=== PATIENT | female | born 1960 | race American Indian/Alaskan Native ===

== ENCOUNTER 2019-05-12 12:18 | Emergency (ER) | payer MEDICAID ==
[2019-05-12 12:37] VITALS: BP 107/71
--- NOTE | 2019-05-12 12:37 | Event Note ---
ED Screening Note ED Screening Note: co lumbar back pain was brushing teeth and coughed no pmh no rx This initial assessment/diagnostic orders/clinical plan/treatment(s) is/are subject to change based on patients health status, clinical progression and re- assessment by fellow clinical providers in the ED. Further treatment and workup at subsequent clinical providers discretion. Patient/guardian urged not to elope from the ED as their condition may be serious if not clinically assessed and managed. Initial orders include: xray ua
[2019-05-12 13:07] LABS: Bilirubin,Urine NEG (Negative); Blood,Urine SM (Negative); Color,Urine Yellow (Yellow); Mucus,Urine 3+ /HPF; Protein,Urine <15 mg/dL mg/dL (Negative); Urobilinogen,Urine < 2.0 mg/dL (<2.0)
--- NOTE | 2019-05-12 13:16 | XRay Report ---
LUMBOSACRAL SPINE, 3 VIEWS INDICATION: Lumbar pain after coughing today. COMPARISON: None. IMPRESSION: Normal alignment. The disc spaces are normal height. Mild to moderate diffuse facet art hropathy is evident. No acute osseous or soft tissue abnormality. Signer Name: Mario Beal Jr, MD Signed: 05/12/2019 1:11 PM Workstation Name: [id number]
[2019-05-12] MEDS ORDERED: DELTASONE PO ONE (14:04)
[2019-05-12] MEDS ORDERED: FLEXERIL PO ONE (14:04)
--- NOTE | 2019-05-12 15:24 | Emergency Department Report ---
ED Back Pain/Injury HPI - General Chief Complaint: Back Pain/Injury Stated Complaint: BACK PAIN Time Seen by Provider: 05/12/19 12:35 Source: patient Limitations: No Limitations - History of Present Illness Initial Comments: Patient is a 59-year-old female with no prior medical conditions her presents ED complaining of low back muscle pain that started this morning. Patient states she was brushing her teeth and was bent over her sink in her home this morning when she strained and accidentally hurt her lower back muscle. Palpation denies any fall trauma or injuries. She denies dysuria, fever, nausea vomiting or abdominal pain. MD Complaint: back pain - Related Data Previous Rx's Medication Instructions Recorded Last Taken Type Cyclobenzaprine [Flexeril] 10 mg PO QHS PRN #15 tablet 05/12/19 Unknown Rx Allergies Allergy/AdvReac Type Severity Reaction Status Date / Time No Known Allergies Allergy Verified 05/12/19 12:20 ED Review of Systems ROS: Stated complaint: BACK PAIN Other details as noted in HPI Comment: All other systems reviewed and negative ED Past Medical Hx - Past Medical History Previous Medical History?: No Hx Hypertension: No Hx HIV: No - Surgical History Past Surgical History?: No - Social History Smoking Status: Never Smoker Substance Use Type: None - Medications Home Medications: Home Medications Medication Instructions Recorded Confirmed Last Taken Type Cyclobenzaprine [Flexeril] 10 mg PO QHS PRN #15 tablet 05/12/19 Unknown Rx ED Physical Exam - General Limitations: No Limitations General appearance: alert, in no apparent distress - Head Head exam: Present: atraumatic, normocephalic - Eye Eye exam: Present: normal appearance - ENT ENT exam: Present: mucous membranes moist - Neck Neck exam: Present: normal inspection - Respiratory Respiratory exam: Present: normal lung sounds bilaterally. Absent: respiratory distress - Cardiovascular Cardiovascular Exam: Present: regular rate, normal rhythm. Absent: systolic murmur, diastolic murmur, rubs, gallop - GI/Abdominal GI/Abdominal exam: Present: soft, normal bowel sounds - Extremities Exam Extremities exam: Present: normal inspection - Back Exam Back exam: Present: normal inspection, full ROM. Absent: tenderness, CVA tenderness (R), CVA tenderness (L) - Neurological Exam Neurological exam: Present: alert, oriented X3 - Psychiatric Psychiatric exam: Present: normal affect, normal mood - Skin Skin exam: Present: warm, dry, intact, normal color. Absent: rash ED Course Vital Signs 05/12/19 12:36 Temperature 97.9 F Pulse Rate 81 Respiratory 18 Rate Blood Pressure 107/71 O2 Sat by Pulse 99 Oximetry ED Medical Decision Making - Medical Decision Making 37-year-old female presents to ED myalgia of the lower back muscle strain ED course: Vital signs are normal patient is in no acute distress Discussed with patient follow-up with primary care physician. Discussed the patient and take medications as prescribed. Patient has no neurological deficit. Patient is alert and oriented 3 and understands all instructions given. Discussed drowsiness effect of Flexeril makes her drowsy and not to operate machinery while taking flexeril Critical care attestation.: If time is entered above; I have spent that time in minutes in the direct care of this critically ill patient, excluding procedure time. ED Disposition Clinical Impression: Strain of muscle, fascia and tendon of lower back, initial encounter Disposition: - TO HOME OR SELFCARE Is pt being admited?: No Does the pt Need Aspirin: No Condition: Stable Instructions: Muscle Strain (ED) Additional Instructions: Make sure to follow up with the primary care physician as discussed. Take all your medications as you've been prescribed. If you have any worsening symptoms or develop new symptoms please return to ED immediately. Prescriptions: Cyclobenzaprine [Flexeril] 10 mg PO QHS PRN #15 tablet PRN Reason: Muscle Spasm Referrals: DORINDA COVINGTON DPM [Primary Care Provider] - 3-5 Days Forms: Work/School Release Form(ED) Time of Disposition: 15:24
== END 2019-05-12 15:30 | disposition home or self-care (01) ==
LOC: ED 12:18
DX: S39.012A Strain of muscle, fascia and tendon of lower back, initial encounter (principal); X58.XXXA Exposure to other specified factors, initial encounter; Y93.89 Activity, other specified; Y92.89 Other specified places as the place of occurrence of the external cause; Y99.8 Other external cause status
CPT/HCPCS: 72100; 81001; 99284; J7512

== ENCOUNTER 2019-12-18 13:50 | Outpatient (CLI) | payer MEDICAID ==
[2019-12-18 14:22] LABS: Blood Urea Nitrogen 12 mg/dL (7-17)
--- NOTE | 2019-12-18 15:35 | Magnetic Resonance Report ---
MR ABDOMEN WITH AND WITHOUT CONTRAST HISTORY: Renal cell carcinoma, mass of kidney TECHNIQUE: Multisequence, multiplanar MRI before and after IV contrast. 20 cc of MultiHance was admin istered intravenously. COMPARISON: None. FINDINGS: Both kidneys are borderline atrophic measuring approximately 9 cm in length. A 1.2 cm slightly comple x lesion is identified at the inferior pole of the left kidney. This does not appear to represent a s imple cyst. This lesion is decreased signal on the T2 images but appears cystic on the T1 and postcon trast images. There is minimal leakage of contrast into the cyst on delayed dynamic imaging. No suspi cious hypervascular mass is appreciated. No obstructive uropathy. The renal veins are patent. No retr operitoneal adenopathy. Normal liver, biliary system, pancreas, spleen and adrenal glands. The aorta is normal caliber. The v isualized bowel loops are within normal limits. No evidence for ascites, adenopathy, inflammatory changes or bony lesion. IMPRESSION: 1.2 cm lesion at the inferior pole of the left kidney as described. I suspect this repres ents a complex cyst and not a renal mass. Consider follow-up in 3-6 months. Signer Name: Mario Beal Jr, MD Signed: 12/18/2019 3:30 PM Workstation Name: [id number]
== END 2019-12-18 13:51 | disposition home or self-care (01) ==
LOC: MRI 13:50
PROVIDERS: ATTEND Radiology Diagnostic Radiology
DX: C64.9 Malignant neoplasm of unspecified kidney, except renal pelvis (principal); N28.1 Cyst of kidney, acquired
CPT/HCPCS: 36415; 74183; 82565; 84520; A9577

== ENCOUNTER 2019-12-24 11:19 | Emergency (ER) | payer MEDICAID ==
[2019-12-24 11:25] VITALS: BP 139/94
[2019-12-24] MEDS ORDERED: methylPREDNISolone ACETATE 80 MG/1 ML INJ IM ONE (11:45)
--- NOTE | 2019-12-24 11:47 | Emergency Department Report ---
ED Lower Extremity HPI - General Chief Complaint: Extremity Injury, Lower Stated Complaint: RIGHT LEG PAIN Time Seen by Provider: 12/24/19 11:41 Source: patient Mode of arrival: Ambulatory Limitations: No Limitations - History of Present Illness Initial Comments: Patient is a pleasant 59-year-old female comes to the ER with left knee pain. She has osteoarthritis in her knee and is received numerous injections including what sounds like stem cell injections in the past. Today she woke up and the knee is extremely painful. She does have a PCP and has an appointment but he could not see her today. Bev is not relieving the pain. She denies any new trauma or fall. Patient states that the aches to the knee began about a week ago and she cannot identify any 1 activity or movement that resulted in the pain starting suddenly again. MD Complaint: knee injury -: Sudden Place: home Worsens With: weight bearing - Related Data Previous Rx's Medication Instructions Recorded Last Taken Type methylPREDNISolone [Medrol 4MG 4 mg PO DAILY #21 tab.ds.pk 12/24/19 Unknown Rx DOSEPAK (21 tabs)] Allergies Allergy/AdvReac Type Severity Reaction Status Date / Time No Known Allergies Allergy Verified 12/24/19 11:20 ED Review of Systems ROS: Stated complaint: RIGHT LEG PAIN Other details as noted in HPI Comment: All other systems reviewed and negative ED Past Medical Hx - Past Medical History Hx Hypertension: No Hx Arthritis: Yes Hx HIV: No - Surgical History Past Surgical History?: No - Family History Family history: no significant - Social History Smoking Status: Never Smoker Substance Use Type: None - Medications Home Medications: Home Medications Medication Instructions Recorded Confirmed Last Taken Type methylPREDNISolone [Medrol 4MG 4 mg PO DAILY #21 tab.ds.pk 12/24/19 Unknown Rx DOSEPAK (21 tabs)] ED Physical Exam - General Limitations: No Limitations General appearance: alert, in no apparent distress - Head Head exam: Present: atraumatic, normocephalic - Eye Eye exam: Present: normal appearance - ENT ENT exam: Present: mucous membranes moist - Neck Neck exam: Present: normal inspection - Respiratory Respiratory exam: Present: normal lung sounds bilaterally. Absent: respiratory distress - Cardiovascular Cardiovascular Exam: Present: regular rate, normal rhythm. Absent: systolic murmur, diastolic murmur, rubs, gallop - GI/Abdominal GI/Abdominal exam: Present: soft, normal bowel sounds - Extremities Exam Extremities exam: Present: normal inspection - Back Exam Back exam: Present: normal inspection - Neurological Exam Neurological exam: Present: alert, oriented X3 - Psychiatric Psychiatric exam: Present: normal affect, normal mood - Skin Skin exam: Present: warm, dry, intact, normal color. Absent: rash ED Course Vital Signs 12/24/19 11:24 Temperature 97.9 F Pulse Rate 89 Respiratory 20 Rate Blood Pressure 139/94 O2 Sat by Pulse 98 Oximetry ED Lower Extremity MDM - Medical Decision Making Vital Signs 12/24/19 11:24 Temperature 97.9 F Pulse Rate 89 Respiratory 20 Rate Blood Pressure 139/94 O2 Sat by Pulse 98 Oximetry Patient was medicated with Depo-Medrol IM and is being DC'd home for follow-up with Dr. Beth. Critical care attestation.: If time is entered above; I have spent that time in minutes in the direct care of this critically ill patient, excluding procedure time. ED Disposition Clinical Impression: Knee pain Disposition: DC-01 TO HOME OR SELFCARE Is pt being admited?: No Does the pt Need Aspirin: No Condition: Stable Instructions: Osteoarthritis (ED) Additional Instructions: med as ordered follow up with DR Kirit mcclure MD Prescriptions: methylPREDNISolone [Medrol 4MG DOSEPAK (21 tabs)] 4 mg PO DAILY #21 tab.ds.pk Referrals: PRIMARY CARE, [Primary Care Provider] - 3-5 Days FELTON BETH MD [Staff Physician] - 3-5 Days Time of Disposition: 11:46
== END 2019-12-24 12:03 | disposition home or self-care (01) ==
LOC: ED 11:19
DX: M25.562 Pain in left knee (principal)
CPT/HCPCS: 96372; 99282; J1040

== ENCOUNTER 2020-06-29 10:33 | Outpatient (CLI) | payer MEDICAID ==
--- NOTE | 2020-06-29 14:13 | Magnetic Resonance Report ---
MR abdomen wo/w con INDICATION / CLINICAL INFORMATION: Renal malignancy.. TECHNIQUE: Multiplanar, multisequence MR images were obtained. Images were obtained before and after the intrave nous demonstration of 18 cc MultiHance. COMPARISON: MRI 12/18/2019 FINDINGS: Liver, gallbladder, adrenals, spleen, pancreas are unremarkable. Common duct is unremarkable. There i s no free fluid or adenopathy. Upper GI tract is within normal limits. Previously seen lesion at the lower pole left kidney has increased in size measuring approximately 1. 6 cm on series 4 image 23/52. This measures 1.8 cm on coronal series 5 image 16. There appears to be mild mural/peripheral enhancement of this on the postcontrast imaging. Right kidney is unremarkable. IMPRESSION: 1. Interval increase in size of lower pole left renal cortical lesion. This measures 1.8 cm in maximu m diameter on today's exam (previously 1.5 cm by my measurement). There is mild peripheral/pleural en hancement after contrast. This is concerning for slow growing/low-grade neoplasm. Signer Name: Gavin Caban MD Signed: 06/29/2020 2:08 PM Workstation Name: [id number]
== END 2020-06-29 10:34 | disposition home or self-care (01) ==
LOC: MRI 10:33
PROVIDERS: ATTEND Radiology Diagnostic Radiology
DX: C64.9 Malignant neoplasm of unspecified kidney, except renal pelvis (principal); N28.89 Other specified disorders of kidney and ureter
CPT/HCPCS: 74183; A9577

== ENCOUNTER 2020-11-01 15:28 | Emergency (ER) | payer MEDICAID ==
--- NOTE | 2020-11-01 17:53 | Emergency Department Report ---
Stated Complaint: FALL Time Seen by Provider: 11/01/20 17:48 - HPI History of Present Illness: 60-year-old -[place] female patient presents with complaints of bilateral knee pain, right shoulder pain, bilateral lower back pain after a fall injury occurring earlier today. She states the fall was ground-level and denies any head trauma or loss of consciousness. Patient rates her overall pain as a 7/10 in severity. She denies any numbness/tingling/weakness in her limbs, difficulty with ambulation, saddle paresthesia, hematuria/hematochezia, or loss of bladder/bowel control. Patient states she has not tried any medication for her symptoms. MSE screening note: Focused history and physical exam performed. Due to findings the following was ordered: ED Medical Decision Making - Medical Decision Making No bony abnormalities or decreased range of motion noted of her joints on exam. She denies red flag symptoms. Recommend patient try ibuprofen [id number] and ice the areas that hurt for now. Recommend follow-up with primary care provider in 3 days. Discussed signs and symptoms that should prompt immediate return to the emergency department in detail with patient who verbalized underst anding. She is well-appearing and stable for discharge home ED Disposition for MSE Clinical Impression: Fall, Muscle strain Disposition: - MED SCREENING EXAM-LEFT Is pt being admited?: No Condition: Stable Instructions: Shoulder Sprain, Lumbosacral Strain Referrals: [facility] [Provider Group] - 3-5 Days ED Physical Exam - General Limitations: No Limitations General appearance: alert, in no apparent distress - Head Head exam: Present: atraumatic, normocephalic - Eye Eye exam: Absent: scleral icterus - Neck Neck exam: Present: normal inspection, full ROM. Absent: tenderness - Respiratory Respiratory exam: Present: normal lung sounds bilaterally. Absent: respiratory distress - Cardiovascular Cardiovascular Exam: Present: regular rate, normal rhythm - GI/Abdominal GI/Abdominal exam: Present: soft. Absent: tenderness - Extremities Exam Extremities exam: Present: full ROM, other (Mild tenderness to palpation of the right trapezius muscle noted; normal sensation and radial pulse noted; no tenderness noted to knees bilateral) - Back Exam Back exam: Present: full ROM. Absent: paraspinal tenderness, vertebral tenderness - Neurological Exam Neurological exam: Present: alert, oriented X3, normal gait. Absent: motor sensory deficit - Expanded Neurological Exam Expanded Sensory exam: Lower Extremity Light Touch: Normal Motor strength exam: RUE: 5, LUE: 5, RLE: 5, LLE: 5 - Skin Skin exam: Present: warm, dry, intact, normal color. Absent: rash ED Review of Systems ROS: Stated complaint: FALL Other details as noted in HPI Constitutional: denies: chills, fever, malaise Respiratory: denies: shortness of breath Cardiovascular: denies: chest pain Gastrointestinal: denies: abdominal pain Musculoskeletal: denies: joint swelling Skin: denies: change in color Neurological: denies: headache, numbness, paresthesias
[2020-11-01 19:43] VITALS: BP 141/89
== END 2020-11-01 18:03 | disposition left against medical advice (07) ==
LOC: ED 15:28
DX: M25.561 Pain in right knee (principal); M25.562 Pain in left knee; M25.511 Pain in right shoulder; Z53.21 Procedure and treatment not carried out due to patient leaving prior to being seen by health care provider

== ENCOUNTER 2021-01-13 09:14 | Outpatient (CLI) | payer MEDICAID ==
--- NOTE | 2021-01-13 10:50 | Magnetic Resonance Report ---
MRI ABDOMEN WITHOUT AND WITH CONTRAST INDICATION / CLINICAL INFORMATION: Malignant neoplasm of unspecified kidney, except renal pelvis. TECHNIQUE: Multiplanar, multisequence series were obtained through the abdomen. 18 cc of IV gadolinium. COMPARISON: 06/29/2020. 12/18/2019. FINDINGS: LIVER: No significant abnormality. GALLBLADDER: No significant abnormality. BILE DUCTS: No significant abnormality. PANCREAS: No significant abnormality. SPLEEN: No significant abnormality. ADRENALS: No significant abnormality. RIGHT KIDNEY AND URETER: No significant abnormality. Tiny 5 mm cyst in the mid right kidney is noted and unchanged. LEFT KIDNEY AND URETER: The previously described 1.8 cm lesion at the inferior pole of the left kidne y appears unchanged in size and MR signal characteristics. Subtle peripheral enhancement is again sug gested on dynamic contrast imaging. This does not represent a simple cyst and remains concerning for a low-grade neoplasm. No change is appreciated since 06/29/2020 exam. STOMACH AND VISUALIZED BOWEL: No significant abnormality. PERITONEUM: No free fluid. No free air. No fluid collection. LYMPH NODES: No significant adenopathy. AORTA and ARTERIES: No significant abnormality. IVC and VEINS: No significant abnormality. ADDITIONAL FINDINGS: None. SKELETAL SYSTEM: No significant abnormality. IMPRESSION: No change since 06/29/2020 exam. See above. Signer Name: Mario Beal Jr, MD Signed: 01/13/2021 10:46 AM Workstation Name: [id number]
--- NOTE | 2021-01-13 13:19 | Ultrasound Report ---
ULTRASOUND RENAL INDICATION / CLINICAL INFORMATION: MALIGNANT NEOPLASM. COMPARISON: Multiple previous MR abdomen is with the most recent being 01/13/2021. FINDINGS: RIGHT KIDNEY: Length = 10.2 cm. [normal > 9 cm] - Parenchymal Thickness = 1.6 cm. [normal > 1.5 cm] - Echogenicity: Normal. - Hydronephrosis: None. - Cyst or mass: No significant abnormality. - Stones: None seen. LEFT KIDNEY: Length = 9.3 cm. [normal > 9 cm] - Parenchymal Thickness = 1.2 cm. [normal > 1.5 cm] - Echogenicity: Normal. - Hydronephrosis: None. - Cyst or mass: Ultrasound also demonstrates an approximate 1.9 cm solid mass at the inferior pole of the left kidney which corresponds to the abnormality seen on MRI. No evidence for cystic change or c alcifications. There is trace internal perfusion on Doppler interrogation. - Stones: None seen. URINARY BLADDER: No significant abnormality. FREE FLUID: None. ADDITIONAL FINDINGS: None. IMPRESSION: 1.9 cm solid mass at the inferior pole of the left kidney as described. Signer Name: Mario Beal Jr, MD Signed: 01/13/2021 1:15 PM Workstation Name: [id number]
== END 2021-01-13 09:15 | disposition home or self-care (01) ==
LOC: MRI 09:14
PROVIDERS: ATTEND Radiology Diagnostic Radiology
DX: C64.9 Malignant neoplasm of unspecified kidney, except renal pelvis (principal); N28.1 Cyst of kidney, acquired; N28.89 Other specified disorders of kidney and ureter
CPT/HCPCS: 74183; 76770; A9575

== ENCOUNTER 2021-03-20 06:27 | Inpatient (IN) | payer MEDICAID ==
[2021-03-20 07:36] LABS: Basophils % (Auto) 0.4 % (0.0-1.8); Eosinophils # (Auto) 0.1 K/mm3 (0.0-0.4); Eosinophils % (Auto) 1.4 % (0.0-4.3); Hematocrit 35.9 % (30.3-42.9); Hemoglobin 11.7 gm/dl (10.1-14.3); Lymphocytes # (Auto) 3.2 K/mm3 (1.2-5.4); Mean Corpuscular HGB Conc 33 % (30-34); Mean Corpuscular Volume 81 fl (79-97); Monocytes # (Auto) 0.7 K/mm3 (0.0-0.8); Monocytes % (Auto) 10.9 % (0.0-7.3); Platelet Count 314 K/mm3 (140-440); Red Blood Count 4.41 M/mm3 (3.65-5.03); Red Cell Distribution Width 15.9 % (13.2-15.2)
[2021-03-20 07:48] LABS: BUN/Creatinine Ratio 19; Blood Urea Nitrogen 17 mg/dL (7-17); Calcium 8.6 mg/dL (8.4-10.2); Hemolysis Index 24
[2021-03-20 07:52] LABS: INR 0.95 (0.87-1.13); Partial Thromboplastin Time 28.6 Sec. (24.2-36.6)
[2021-03-20] MEDS ORDERED: propofoL 200 MG/20 ML VIAL IV ONE (08:33)
[2021-03-20] MEDS ORDERED: ROCURONIUM 50 MG/5 ML INJ IV ONE ×2 (08:33→12:52)
[2021-03-20] MEDS ORDERED: MIDAZOLAM 2 MG/2 ML INJ ONE (08:33)
[2021-03-20] MEDS ORDERED: LIDOCAINE MPF (2%) 20 MG/1 ML VIAL 5 ML ONE (08:33)
[2021-03-20] MEDS ORDERED: HYDROmorphone 1 MG/1 ML INJ ONE (08:33)
[2021-03-20] MEDS ORDERED: ONDANSETRON 4 MG/2 ML INJ IV PRN (08:46)
[2021-03-20] MEDS ORDERED: oxyCODONE /ACETAMINOPHEN 5-325MG TAB PO PRN (08:46)
--- NOTE | 2021-03-20 08:51 | Anesthesia Consultation ---
Anesthesia Consult and Med Hx Date of service: 03/20/21 - Airway Anesthetic Teeth Evaluation: Good (some missing teeth) ROM Head & Neck: Adequate Mental/Hyoid Distance: Adequate Mallampati Class: Class III Intubation Access Assessment: Possibly Difficult - Pre-Operative Health Status ASA Pre-Surgery Classification: ASA2 Proposed Anesthetic Plan: General - Pulmonary Hx Smoking: No Hx Sleep Apnea: No (BJ PRE SCREEN LOW RISK) - Cardiovascular System Hx Hypertension: No - Central Nervous System Hx Psychiatric Problems: Yes (anxiety) - Endocrine Hx Renal Disease: Yes (left kidney CA) - Other Systems Hx Cancer: Yes (left kidney CA)
--- NOTE | 2021-03-20 08:51 | Anesthesia Day of Surgery ---
Anesthesia Day of Surgery - Day of Surgery Patient Examined: Yes Patient H&P Reviewed: Yes Patient is NPO: Yes
[2021-03-20] MEDS ORDERED: ceFAZolin/Water 2 GM/20 ML 2 GM/20 ML SYRINGE IV ONE (08:56)
[2021-03-20] MEDS ORDERED: NEOSTIGMINE 10MG/10 ML INJ MDV ONE (09:07)
[2021-03-20] MEDS ORDERED: GLYCOPYRROLATE 0.4 MG/2 ML INJ ONE (09:07)
[2021-03-20] MEDS ORDERED: ONDANSETRON 4 MG/2 ML INJ ONE (09:07)
--- NOTE | 2021-03-20 09:20 | Short Stay Summary ---
Short Stay Documentation Date of service: 03/20/21 Narrative H&P: 61-year-old female with left-sided renal cell carcinoma who presents for left renal cell carcinoma cryoablation. - History Principal diagnosis: Left renal cell carcinoma H&P: obtained from office - Allergies and Medications Current Medications: Allergies No Known Allergies Allergy (Verified 12/24/19 11:20) Home Medications Medication Instructions Recorded Confirmed Last Taken Type Buspirone HCl [busPIRone] 15 mg PO TID 03/20/21 03/20/21 03/19/21 History 15 mg Lifitegrast [Xiidra] 1 drop INTRAOCULA BID 03/20/21 03/20/21 03/19/21 History 1 drop Quetiapine Fumarate [Quetiapine 400 mg PO HS 03/20/21 03/20/21 03/19/21 History Fumarate ER] 400 mg Active Medications Hydromorphone HCl (Hydromorphone 1 Mg/1 Ml Inj) 0.5 mg IV Q10MIN PRN PRN Reason: Pain , Severe (7-10) Stop: 03/21/21 09:00 Sodium Chloride (Nacl 0.9% 1000 Ml) 1,000 mls @ 42 mls/hr IV DIRECT CHERRY Ondansetron HCl (Ondansetron 4 Mg/2 Ml Inj) 4 mg IV ONCE PRN PRN Reason: Nausea And Vomiting Oxycodone/Acetaminophen (Oxycodone /Acetaminophen 5-325mg Tab) 1 tab PO ONCE PRN PRN Reason: Pain, Moderate (4-6) - Physical exam General appearance: no acute distress HEENT: Mucous membr. moist/pink Lungs: Normal air movement Gastrointestinal: normal - Brief post op/procedure progress note Date of procedure: 03/28/21 Pre-op diagnosis: Left RCC Post-op diagnosis: same Procedure: EXAM: 1. Percutaneous CT-guided cryoablation of a right-sided renal cell carcinoma using 2 cryoablation probes DATE: 03/20/21 CUFF RUNNER: TINO KEYS MD INDICATION: Left-sided renal cell carcinoma measuring approximately 1.8 cm in diameter on CT scan who presents for percutaneous therapy of the left-sided renal cell carcinoma. ANESTHESIA: GETA MEDICATIONS: Please see nursing report for full details. DEVICES: 1. IcePearl 2.1 CX 90 needle 2. IceRod 1.5 CX 90 needle CONTRAST: None. PROCEDURE: The risks, benefits, and alternatives were discussed with the patient; written informed consent was obtained. The patient was brought to the CT suite in stable condition. She was then intubated by anesthesiology, and positioned in a prone position on the CT gantry table. The grid was applied to the left flank and the renal cell carcinoma was identified using CT guidance. Localization inside barrel lathe operator CT was performed. Position and breathing was adjusted. This is performed for localization purposes, and not for diagnostic purposes. The area was prepped and draped in a sterile fashion. The skin was anesthetized with lidocaine. Short 25-gauge finder needles were used for localization. Then a 25-gauge Chiba needles were used to identify the correct positioning to access the left-sided renal cell carcinoma. Using tandem trocar technique, an IceRod ablation probe was advanced under direct CT guidance into the left-sided renal cell carcinoma. An additional cryoablation probe, the IcePearl ablation probe, was advanced under direct CT guidance into the left-sided renal cell carcinoma. After appropriately framing the lesion with the cryoablation probes, CT was perf ormed confirming appropriate position. CT was performed demonstrating no evidence of perinephric hemorrhage. 18-gauge needle was placed into the left perinephric space. 1 L of NS saline was infused into the perinephric space. This displaced the colon and small bowel from the left renal cell carcinoma. 10 minute active freezing was performed with both probes, and CT imaging was obtained during the active freeze demonstrating appropriate size of the ice ball. 5 minute active thaw was allowed to occur. 10 minute active freezing was again performed with both probes and CT imaging was obtained during the active freeze demonstrating appropriate size of the ice ball. 5 minute active thaw was allowed to occur and then cauterization was performed through the ablation probes for 30 seconds to cauterize the tract. Afterwards, all the probes were removed. CT was obtained demonstrating no evidence of perinephric hemorrhage. The patient tolerated the procedure well. No immediate postprocedural complication. FINDINGS: Successful cryoablation of the left-sided renal cell carcinoma using 2 cryoablation probes as described above. IMPRESSION: Successful cryoablation of the left-sided renal cell carcinoma using 2 cryoablation probes as described above. Anesthesia: MAC Surgeon: TINO KEYS Estimated blood loss: minimal Condition: stable - Hospital course Hospital course: The patient was admitted after cryoablation and had mild discomfort of her left flank, which is expected. This improved over the next day and there was minimal if any discomfort afterwards. Patient had underlying chronic nausea and vomiting due to underlying hiatal hernia, H. pylori infection, and has been worked up by outpatient gastroenterology. She was unable to tolerate p.o. intake for a day, and therefore GI was consulted who recommended she obtain a gallbladder ultrasound. KUB and gallbladder ultrasound were obtained both of which were negative. Patient was discharged with pain medication, antibiotics which are typical after cryoablation, and antiemetic therapy. She will follow up in 2 weeks. - Disposition Condition at discharge: Good Disposition: DC-[id number] TO HOME OR SELFCARE - Discharge Diagnoses (1) Renal cell carcinoma Status: Acute (2) Nausea & vomiting Status: Acute (3) Status post surgery Status: Acute (4) Bipolar disorder Status: Chronic Qualifiers: Active/Remission status: in full remission (5) Hypertension Status: Chronic Qualifiers: Hypertension type: essential hypertension Qualified Code(s): I10 - Essential (primary) hypertension Short Stay Discharge Plan Activity: advance as tolerated (do not lift more than 10 lbs for 1 week) Weight Bearing Status: Weight Bear as Tolerated Diet: other (per GI) Wound: keep clean and dry Follow up with: PRIMARY CARE, [Primary Care Provider] - 7 Days Forms: OPU Post Liver Biopsy DC Instr Prescriptions: LORazepam [Ativan] 0.5 mg PO BID PRN #10 tab PRN Reason: Nausea and vomiting Ciprofloxacin HCl [Ciprofloxacin TAB] 250 mg PO BID #14 tablet HYDROcodone/APAP 5-325 [[place] 5/325] 1 each PO Q6H #30 tablet Pantoprazole [Protonix TAB] 40 mg PO BID #60 tablet Ondansetron HCl [Zofran] 4 mg PO Q6HR PRN #30 tablet PRN Reason: Nausea And Vomiting Ondansetron [Zofran Odt] 4 mg PO Q4HR PRN #30 tab.rapdis PRN Reason: Nausea
[2021-03-20] MEDS ORDERED: LIDOCAINE 1%/EPINEPHRINE 1:100,000 VIAL (20 ML) INFILTRATI ONE (10:18)
[2021-03-20] MEDS ORDERED: MEPERIDINE 25 MG/1 ML INJ IV PRN (12:43)
[2021-03-20] MEDS ORDERED: MEPERIDINE 25 MG/1 ML INJ ONE (12:45)
[2021-03-20] MEDS ORDERED: HYDROcodone/ACETAMINOPHEN 5-325 MG TAB PO PRN (12:46)
[2021-03-20] MEDS ORDERED: ACETAMINOPHEN 325 MG TAB PO PRN (12:46)
[2021-03-20] MEDS ORDERED: LIFITEGRAST INTRAOCULA SCH (13:00)
[2021-03-20] MEDS: HYDROmorphone 1 MG/1 ML INJ IV PRN ×3 (13:00→13:40)
[2021-03-20] MEDS ORDERED: hydrALAZINE 20 MG/1 ML INJ IV ONE (13:07)
[2021-03-20] MEDS ORDERED: hydrALAZINE 20 MG/1 ML INJ ONE (13:09)
--- NOTE | 2021-03-20 13:15 | Operative Report ---
Operative Report Operative Report: EXAM: 1. Percutaneous CT-guided cryoablation of a right-sided renal cell carcinoma using 2 cryoablation probes DATE: 03/20/21 FEATHERER: TINO KEYS MD INDICATION: Left-sided renal cell carcinoma measuring approximately 1.8 cm in diameter on CT scan who presents for percutaneous therapy of the left-sided re nal cell carcinoma. ANESTHESIA: GETA MEDICATIONS: Please see nursing report for full details. DEVICES: 1. IcePearl 2.1 CX 90 needle 2. IceRod 1.5 CX 90 needle CONTRAST: None. PROCEDURE: The risks, benefits, and alternatives were discussed with the patient; written informed consent was obtained. The patient was brought to the CT suite in stable condition. She was then intubated by anesthesiology, and positioned in a prone position on the CT gantry table. The grid was applied to the left flank and the renal cell carcinoma was identified using CT guidance. Localization engineering faculty CT was performed. Position and breathing was adjusted. This is performed for localization purposes, and not for diagnostic purposes. The area was prepped and draped in a sterile fashion. The skin was anesthetized with lidocaine. Short 25-gauge finder needles were used for localization. Then a 25-gauge Chiba needles were used to identify the correct positioning to access the left-sided renal cell carcinoma. Using tandem trocar technique, an IceRod ablation probe was advanced under direct CT guidance into the left-sided renal cell carcinoma. An additional cryoablation probe, the IcePearl ablation probe, was advanced under direct CT guidance into the left-sided renal cell carcinoma. After appropriately framing the lesion with the cryoablation probes, CT was performed confirming appropriate position. CT was performed demonstrating no evidence of perinephric hemorrhage. 18-gauge needle was placed into the left perinephric space. 1 L of NS saline was infused into the perinephric space. This displaced the colon and small bowel from the left renal cell carcinoma. 10 minute active freezing was performed with both probes, and CT imaging was obtained during the active freeze demonstrating appropriate size of the ice ball. 5 minute active thaw was allowed to occur. 10 minute active freezing was again performed with both probes and CT imaging was obtained during the active freeze demonstrating appropriate size of the ice ball. 5 minute active thaw was allowed to occur and then cauterization was performed through the ablation probes for 30 seconds to cauterize the tract. Afterwards, all the probes were removed. CT was obtained demonstrating no evidence of perinephric hemorrhage. The patient tolerated the procedure well. No immediate postprocedural complication. FINDINGS: Successful cryoablation of the left-sided renal cell carcinoma using 2 cryoablation probes as described above. IMPRESSION: Successful cryoablation of the left-sided renal cell carcinoma using 2 cryoabla tion probes as described above.
[2021-03-20] MEDS ORDERED: NON-FORMULARY EACH (Buspirone Hcl [Buspirone] 15 MG Tablet) PO SCH (14:00)
--- NOTE | 2021-03-20 14:36 | Post Anesthesia Evaluation ---
- Post Anesthesia Evaluation Patient Participated: Yes Airway Patent: Yes Stable Respiratory Function: Yes Nausea/Vomiting: No Temp > 96.8F: Yes Pain Manageable: Yes Adequeate Hydration: Yes Anesthesia Complications: No Other Comments: HTN in PACU treated with IV antihypertensives
[2021-03-20] MEDS ORDERED: ALUM-MAG HYDROXIDE-SIMETHICONE 200-200-20MG/5ML ORAL LIQD 30 ML PO PRN (17:00)
[2021-03-20] MEDS: SODIUM CHLORIDE 0.9% 1000 ML 1,000 ML IV SCH (17:01)
[2021-03-20] MEDS: LOSARTAN 50 MG TAB PO SCH (17:45)
[2021-03-20] MEDS: busPIRone 5 MG TAB PO SCH (21:00)
[2021-03-20] MEDS: PANTOPRAZOLE 40 MG TAB PO SCH (21:53)
[2021-03-20] MEDS: QUEtiapine 200 MG TAB PO SCH (21:53)
[2021-03-20] MEDS ORDERED: QUETIAPINE FUMARATE 400 MG PO SCH (22:00)
[2021-03-21 06:26] LABS: Basophils % (Auto) 0.4 % (0.0-1.8); Eosinophils # (Auto) 0.1 K/mm3 (0.0-0.4); Eosinophils % (Auto) 0.7 % (0.0-4.3); Hematocrit 33.6 % (30.3-42.9); Hemoglobin 10.8 gm/dl (10.1-14.3); Lymphocytes # (Auto) 1.8 K/mm3 (1.2-5.4); Lymphocytes % (Auto) 26.1 % (13.4-35.0); Mean Corpuscular HGB Conc 32 % (30-34); Mean Corpuscular Volume 83 fl (79-97); Monocytes # (Auto) 0.7 K/mm3 (0.0-0.8); Monocytes % (Auto) 10.2 % (0.0-7.3); Platelet Count 293 K/mm3 (140-440); Red Blood Count 4.04 M/mm3 (3.65-5.03)
--- NOTE | 2021-03-21 07:42 | Consultation ---
History of Present Illness - Reason for Consult Consult date: 03/20/21 Medical management Requesting physician: TINO KEYS - History of Present Illness Patient was admitted for postoperative care after cryoablation of left renal cell carcinoma. Postop patient doing well. No complaints. Wants to continue more Seroquel and wants a straight catheterization for bladder distention. Otherwise patient comfortable. Past History Past Medical History: other (Renal cell carcinoma left side) Past Surgical History: Other (Cryoablation of the left renal cell carcinoma) Medications and Allergies Allergies Allergy/AdvReac Type Severity Reaction Status Date / Time No Known Allergies Allergy Verified 12/24/19 11:20 Home Medications Medication Instructions Recorded Confirmed Last Taken Type Buspirone HCl [busPIRone] 15 mg PO TID 03/20/21 03/20/21 03/19/21 History 15 mg Lifitegrast [Xiidra] 1 drop INTRAOCULA BID 03/20/21 03/20/21 03/19/21 History 1 drop Quetiapine Fumarate [Quetiapine 400 mg PO HS 03/20/21 03/20/21 03/19/21 History Fumarate ER] 400 mg Active Meds: Active Medications Acetaminophen (Acetaminophen 325 Mg Tab) 650 mg PO Q4H PRN PRN Reason: Pain MILD(1-3)/Fever >100.5/RAMOS Hydrocodone Bitart/Acetaminophen (Hydrocodone/Acetaminophen 5-325 Mg Tab) 2 each PO Q6H PRN PRN Reason: Pain, Moderate (4-6) Al Hydrox/Mg Hydrox/Simethicone (Alum-Mag Hydroxide-Simethicone [id number]/5ml Oral Liqd 30 Ml) 30 ml PO Q4H PRN PRN Reason: Indigestion Last Admin: 03/20/21 17:09 Dose: 30 ml Documented by: Buspirone HCl (Buspirone 5 Mg Tab) 15 mg PO TID CHERRY Last Admin: 03/20/21 21:00 Dose: 15 mg Documented by: Hydromorphone HCl (Hydromorphone 1 Mg/1 Ml Inj) 0.5 mg IV Q10MIN PRN PRN Reason: Pain , Severe (7-10) Stop: 03/21/21 09:00 Last Admin: 03/20/21 13:40 Dose: 0.5 mg Documented by: Sodium Chloride (Nacl 0.9% 1000 Ml) 1,000 mls @ 42 mls/hr IV DIRECT [facility] Last Admin: 03/20/21 17:01 Dose: 42 mls/hr Documented by: Losartan Potassium (Losartan 50 Mg Tab) 50 mg PO QDAY [facility] Last Admin: 03/20/21 17:45 Dose: 50 mg Documented by: Miscellaneous Medication (Lifitegrast [Xiidra]) 1 drop INTRAOCULA BID [facility] Oxycodone/Acetaminophen (Oxycodone /Acetaminophen 5-325mg Tab) 1 tab PO ONCE PRN PRN Reason: Pain, Moderate (4-6) Pantoprazole Sodium (Pantoprazole 40 Mg Tab) 40 mg PO QDAC [facility] Last Admin: 03/20/21 21:53 Dose: 40 mg Documented by: Quetiapine Fumarate (Quetiapine 200 Mg Tab) 400 mg PO QHS [facility] Last Admin: 03/20/21 21:53 Dose: 400 mg Documented by: Sodium Chloride (Sodium Chloride 0.9% 10 Ml Flush Syringe) 10 ml IV BID [facility] Last Admin: 03/21/21 00:06 Dose: 10 ml Documented by: Sodium Chloride (Sodium Chloride 0.9% 10 Ml Flush Syringe) 10 ml IV PRN PRN PRN Reason: LINE FLUSH Exam - Constitutional Vitals: Temp Pulse Resp BP Pulse Ox 98.7 F 81 19 98/74 100 03/21/21 03:57 03/21/21 06:52 03/21/21 03:57 03/21/21 03:57 03/21/21 03:57 General appearance: Present: no acute distress, well-nourished - EENT Eyes: Present: PERRL ENT: hearing intact, clear oral mucosa - Neck Neck: Present: supple, normal ROM - Respiratory Respiratory effort: normal Respiratory: bilateral: CTA - Cardiovascular Heart rate: 78 Rhythm: regular Heart Sounds: Present: S1 & S2. Absent: rub, click - Extremities Extremities: pulses symmetrical, No edema Peripheral Pulses: within normal limits - Abdominal General gastrointestinal: Present: soft, non-tender, non-distended, normal bowel sounds Female genitourinary: Present: normal - Integumentary Integumentary: Present: clear, warm, dry - Musculoskeletal Musculoskeletal: gait normal, strength equal bilaterally - Psychiatric Psychiatric: appropriate mood/affect, intact judgment & insight - Neurologic Neurologic: CNII-XII intact, moves all extremities Results - Labs CBC & Chem 7: 03/21/21 04:31 03/20/21 Unknown Labs: Abnormal lab results 03/20/21 03/21/21 Range/Units Unknown 04:31 MCH 27 L (28-32) pg RDW 16.0 H (13.2-15.2) % [place] % (Auto) 10.2 H (0.0-7.3) % Glucose 114 H (65-100) mg/dL Assessment and Plan - Patient Problems (1) Status post surgery Current Visit: Yes Status: Acute Plan to address problem: Patient had cryoablation of the left renal cell carcinoma Postop patient doing well (2) Generalized anxiety disorder Current Visit: Yes Status: Chronic Plan to address problem: Continue BuSpar (3) Bipolar disorder Current Visit: Yes Status: Chronic Qualifiers: Active/Remission status: in full remission Plan to address problem: Continue Seroquel 400 mg at nighttime (4) Hypertension Current Visit: Yes Status: Chronic Qualifiers: Hypertension type: essential hypertension Qualified Code(s): I10 - Essential (primary) hypertension Plan to address problem: Continue antihypertensive and adjust medications as necessary (5) DVT prophylaxis Current Visit: Yes Status: Acute Plan to address problem: On SCDs and GI prophylaxis
[2021-03-21 07:50] LABS: Alanine Aminotransferase 28 units/L (7-56); Albumin 3.4 g/dL (3.9-5); BUN/Creatinine Ratio 11; Blood Urea Nitrogen 10 mg/dL (7-17); Calcium 8.3 mg/dL (8.4-10.2); Hemolysis Index 24
[2021-03-21] MEDS: busPIRone 5 MG TAB PO SCH (09:07)
[2021-03-21] MEDS: LOSARTAN 50 MG TAB PO SCH (09:08)
[2021-03-21] MEDS: PANTOPRAZOLE 40 MG TAB PO SCH (09:08)
--- NOTE | 2021-03-21 09:55 | Progress Note ---
Assessment and Plan Assessment and plan: (1) Status post cryoablation of left renal carcinoma Current Visit: Yes Status: Acute Plan to address problem: Has no complaints except for back pain (2) Generalized anxiety disorder Current Visit: Yes Status: Chronic Plan to address problem: Continue BuSpar (3) Bipolar disorder Current Visit: Yes Status: Chronic Qualifiers: Active/Remission status: in full remission Plan to address problem: Continue Seroquel 400 mg at nighttime (4) Hypertension Current Visit: Yes Status: Chronic Qualifiers: Hypertension type: essential hypertension Qualified Code(s): I10 - Essential (primary) hypertension Plan to address problem: Continue antihypertensive and adjust medications as necessary (5) DVT prophylaxis Current Visit: Yes Status: Acute Plan to address problem: On SCDs and GI prophylaxis History Interval history: Patient has no complaints Voiding well per RN Denies any hematuria Hospitalist Physical - Physical exam Narrative exam: VITAL SIGNS: Reviewed. GENERAL: Awake HEAD: No signs of head trauma. EYES: Pupils are equal. Extraocular motions intact. MOUTH: Oropharynx is normal. NECK: No adenopathy, no JVD. CHEST: Chest with diminished breath sounds bilaterally. No wheezes, rales, or rhonchi. CARDIAC: normal S1 and S2, without murmurs, gallops, or rubs. ABDOMEN: Soft, non tender and non distended. No rebound or guarding, and no masses palpated. Bowel Sounds normal. MUSCULOSKELETAL: No edema NEUROLOGIC EXAM: Alert and oriented x3. No focal neurologic deficits SKIN: No obvious lesions - Constitutional Vitals: Temp Pulse Resp BP Pulse Ox 99.0 F 82 18 141/89 99 03/21/21 08:59 03/21/21 08:59 03/21/21 08:59 03/21/21 08:59 03/21/21 08:59 Results - Labs CBC & Chem 7: 03/21/21 04:31 03/21/21 04:31 Labs: Laboratory Last Values WBC 7.0 K/mm3 (4.5-11.0) 03/21/21 04:31 RBC 4.04 M/mm3 (3.65-5.03) 03/21/21 04:31 Hgb 10.8 gm/dl (10.1-14.3) 03/21/21 04:31 Hct 33.6 % (30.3-42.9) 03/21/21 04:31 MCV 83 fl (79-97) 03/21/21 04:31 MCH 27 pg (28-32) L 03/21/21 04:31 MCHC 32 % (30-34) 03/21/21 04:31 RDW 16.0 % (13.2-15.2) H 03/21/21 04:31 Plt Count 293 K/mm3 (140-440) 03/21/21 04:31 Lymph % (Auto) 26.1 % (13.4-35.0) 03/21/21 04:31 [place] % (Auto) 10.2 % (0.0-7.3) H 03/21/21 04:31 Eos % (Auto) 0.7 % (0.0-4.3) 03/21/21 04:31 Baso % (Auto) 0.4 % (0.0-1.8) 03/21/21 04:31 Lymph # (Auto) 1.8 K/mm3 (1.2-5.4) 03/21/21 04:31 [place] # (Auto) 0.7 K/mm3 (0.0-0.8) 03/21/21 04:31 Eos # (Auto) 0.1 K/mm3 (0.0-0.4) 03/21/21 04:31 Baso # (Auto) 0.0 K/mm3 (0.0-0.1) 03/21/21 04:31 Seg Neutrophils % 62.6 % (40.0-70.0) 03/21/21 04:31 Seg Neutrophils # 4.4 K/mm3 (1.8-7.7) 03/21/21 04:31 PT 12.5 Sec. (12.2-14.9) 03/20/21 Unknown INR 0.95 (0.87-1.13) 03/20/21 Unknown APTT 28.6 Sec. (24.2-36.6) 03/20/21 Unknown Sodium 140 mmol/L (137-145) 03/21/21 04:31 Potassium 4.2 mmol/L (3.6-5.0) 03/21/21 04:31 Chloride 107.2 mmol/L (98-107) H 03/21/21 04:31 Carbon Dioxide 23 mmol/L (22-30) 03/21/21 04:31 Anion Gap 14 mmol/L 03/21/21 04:31 BUN 10 mg/dL (7-17) 03/21/21 04:31 Creatinine 0.9 mg/dL (0.6-1.2) 03/21/21 04:31 Estimated GFR > 60 ml/min 03/21/21 04:31 BUN/Creatinine Ratio 11 % 03/21/21 04:31 Glucose 103 mg/dL (65-100) H 03/21/21 04:31 Calcium 8.3 mg/dL (8.4-10.2) L 03/21/21 04:31 Total Bilirubin 0.40 mg/dL (0.1-1.2) 03/21/21 04:31 AST 51 units/L (5-40) H 03/21/21 04:31 ALT 28 units/L (7-56) 03/21/21 04:31 Alkaline Phosphatase 91 units/L (35-129) 03/21/21 04:31 Total Protein 6.8 g/dL (6.3-8.2) 03/21/21 04:31 Albumin 3.4 g/dL (3.9-5) L 03/21/21 04:31 Albumin/Globulin Ratio 1.0 % 03/21/21 04:31 Russell/IV: Voiding Method Toilet Active Medications - Current Medications Current Medications: Generic Name Dose Route Start Last Admin Trade Name Freq PRN Reason Stop Dose Admin Acetaminophen 650 mg 03/20/21 12:46 Acetaminophen 325 Mg Tab PO Q4H PRN Pain MILD(1-3)/Fever >100.5/RAMOS Hydrocodone Bitart/Acetaminophen 2 each 03/20/21 12:46 Hydrocodone/Acetaminophen 5-325 Mg Tab PO Q6H PRN Pain, Moderate (4-6) Al Hydrox/Mg Hydrox/Simethicone 30 ml 03/20/21 17:00 03/20/21 17:09 Alum-Mag Hydroxide-Simethicone 048-955-06jz/5ml Oral Liqd 30 Ml PO 30 ml Q4H PRN Administration Indigestion Buspirone HCl 15 mg 03/20/21 20:00 03/21/21 09:07 Buspirone 5 Mg Tab PO 15 mg TID CHERRY Administration Famotidine 20 mg 03/21/21 10:00 Famotidine 20 Mg Tab PO BID CHERRY Sodium Chloride 1,000 mls @ 42 mls/hr 03/20/21 08:00 03/20/21 17:01 Nacl 0.9% 1000 Ml IV 42 mls/hr DIRECT CHERRY Administration Losartan Potassium 50 mg 03/20/21 18:00 03/21/21 09:08 Losartan 50 Mg Tab PO 50 mg QDAY CHERRY Administration Miscellaneous Medication 1 drop 03/20/21 13:00 Lifitegrast [Xiidra] INTRAOCULA BID CHERRY Oxycodone/Acetaminophen 1 tab 03/20/21 08:46 Oxycodone /Acetaminophen 5-325mg Tab PO ONCE PRN Pain, Moderate (4-6) Pantoprazole Sodium 40 mg 03/20/21 22:00 03/21/21 09:08 Pantoprazole 40 Mg Tab PO 40 mg QDAC CHERRY Administration Quetiapine Fumarate 400 mg 03/20/21 22:00 03/20/21 21:53 Quetiapine 200 Mg Tab PO 400 mg QHS CHERRY Administration Sodium Chloride 10 ml 03/20/21 13:00 03/21/21 09:10 Sodium Chloride 0.9% 10 Ml Flush Syringe IV 10 ml BID CHERRY Administration Sodium Chloride 10 ml 03/20/21 12:46 Sodium Chloride 0.9% 10 Ml Flush Syringe IV PRN PRN LINE FLUSH
[2021-03-21] MEDS ORDERED: FAMOTIDINE 20 MG TAB PO SCH (10:00)
--- NOTE | 2021-03-21 15:38 | Progress Note ---
Assessment and Plan 61-year-old female status post left renal cell carcinoma cryoablation with Hydrodissection. Successful cryoablation. Minimal left flank pain. Most of her left flank pain was related to the pressure bandage which has been removed. Chronic nausea and vomiting which has been present since May, and worsened in the last 2 weeks prior to procedure. I did not know of her exacerbation prior to performing procedure yesterday. Consulted gastroenterology for assistance. Started patient on PPIs IV twice daily. Started Zofran. Placed patient on liquid diet. Appreciate assistance. Once patient is able to tolerate p.o., can be discharged. Subjective Date of service: 03/21/21 Principal diagnosis: Left renal cell carcinoma Interval history: Patient reports a longstanding history of nausea and vomiting since May. For the last 2 weeks in particular, the patient has been having intermittent nausea and vomiting. She reports a history of hiatal hernia with intestinal metaplasia/Glasgow's and on her recent endoscopy, was diagnosed with H. pylori. Since surgery, she has not been able to keep down any meals. She feels good and wants to go home, but given her inability to tolerate p.o. intake (which is a chronic problem) we will keep her until she can keep p.o. intake down. Left flank feels pretty good except for some mild superficial numbness. Objective - Constitutional Vitals: Vital Signs - 12hr 03/21/21 03/21/21 03/21/21 03:57 06:52 08:59 Temperature 98.7 F 99.0 F Pulse Rate 87 81 82 Respiratory 19 18 Rate Blood Pressure 98/74 141/89 O2 Sat by Pulse 100 99 Oximetry 03/21/21 10:00 Temperature Pulse Rate Respiratory 16 Rate Blood Pressure O2 Sat by Pulse Oximetry General appearance: Present: no acute distress - EENT Eyes: EOM intact ENT: hearing intact - Respiratory Respiratory effort: normal - Gastrointestinal General gastrointestinal: Present: soft, tender (Minimal left flank tenderness which has greatly improved after removal of pressure bandage.) - Psychiatric Psychiatric: appropriate mood/affect, cooperative - Labs CBC & Chem 7: 03/21/21 04:31 03/21/21 04:31 Labs: Abnormal lab results 03/21/21 03/21/21 Range/Units 04:31 04:31 MCH 27 L (28-32) pg RDW 16.0 H (13.2-15.2) % [place] % (Auto) 10.2 H (0.0-7.3) % Chloride 107.2 H (98-107) mmol/L Glucose 103 H (65-100) mg/dL Calcium 8.3 L (8.4-10.2) mg/dL AST 51 H (5-40) units/L Albumin 3.4 L (3.9-5) g/dL Medications & Allergies - Medications Allergies/Adverse Reactions: Allergies No Known Allergies Allergy (Verified 12/24/19 11:20) Home Medications: Home Medications Medication Instructions Recorded Confirmed Last Taken Type Buspirone HCl [busPIRone] 15 mg PO TID 03/20/21 03/20/21 03/19/21 History 15 mg Lifitegrast [Xiidra] 1 drop INTRAOCULA BID 03/20/21 03/20/21 03/19/21 History 1 drop Quetiapine Fumarate [Quetiapine 400 mg PO HS 03/20/21 03/20/21 03/19/21 History Fumarate ER] 400 mg Ciprofloxacin HCl [Ciprofloxacin 250 mg PO BID #14 tablet 03/21/21 Unknown Rx TAB] HYDROcodone/APAP 5-325 [[place] 1 each PO Q6H #30 tablet 03/21/21 Unknown Rx 5/325] Ondansetron [Zofran Odt] 4 mg PO Q4HR PRN #30 tab.rapdis 03/21/21 Unknown Rx Pantoprazole [Protonix TAB] 40 mg PO BID #60 tablet 03/21/21 Unknown Rx Active Medications: Generic Name Dose Route Start Last Admin Trade Name Edi PRN Reason Stop Dose Admin Acetaminophen 650 mg 03/20/21 12:46 Acetaminophen 325 Mg Tab PO Q4H PRN Pain MILD(1-3)/Fever >100.5/RAMOS Hydrocodone Bitart/Acetaminophen 2 each 03/20/21 12:46 Hydrocodone/Acetaminophen 5-325 Mg Tab PO Q6H PRN Pain, Moderate (4-6) Al Hydrox/Mg Hydrox/Simethicone 30 ml 03/20/21 17:00 03/20/21 17:09 Alum-Mag Hydroxide-Simethicone 245-812-52gm/5ml Oral Liqd 30 Ml PO 30 ml Q4H PRN Administration Indigestion Buspirone HCl 15 mg 03/20/21 20:00 03/21/21 09:07 Buspirone 5 Mg Tab PO 15 mg TID CHERRY Administration Sodium Chloride 1,000 mls @ 42 mls/hr 03/20/21 08:00 03/20/21 17:01 Nacl 0.9% 1000 Ml IV 42 mls/hr DIRECT CHERRY Administration Levofloxacin 500 mg 03/21/21 15:00 Levofloxacin 500 Mg Tab PO Q24HR CHERRY Protocol Lorazepam 0.5 mg 03/21/21 14:46 Lorazepam 2 Mg/Ml Vial IV Q12H PRN Nausea Losartan Potassium 50 mg 03/20/21 18:00 03/21/21 09:08 Losartan 50 Mg Tab PO 50 mg QDAY CHERRY Administration Miscellaneous Medication 1 drop 03/20/21 13:00 Lifitegrast [Xiidra] INTRAOCULA BID CHERRY Ondansetron HCl 4 mg 03/21/21 16:00 Ondansetron 4 Mg/2 Ml Inj IV Q4H PRN Nausea And Vomiting Oxycodone/Acetaminophen 1 tab 03/20/21 08:46 Oxycodone /Acetaminophen 5-325mg Tab PO ONCE PRN Pain, Moderate (4-6) Pantoprazole Sodium 40 mg 03/20/21 22:00 03/21/21 09:08 Pantoprazole 40 Mg Tab PO 40 mg QDAC CHERRY Administration Pantoprazole Sodium 40 mg 03/21/21 15:00 Pantoprazole 40 Mg Inj IV BID CHERRY Quetiapine Fumarate 400 mg 03/20/21 22:00 03/20/21 21:53 Quetiapine 200 Mg Tab PO 400 mg QHS CHERRY Administration Sodium Chloride 10 ml 03/20/21 13:00 03/21/21 09:10 Sodium Chloride 0.9% 10 Ml Flush Syringe IV 10 ml BID CHERRY Administration Sodium Chloride 10 ml 03/20/21 12:46 Sodium Chloride 0.9% 10 Ml Flush Syringe IV PRN PRN LINE FLUSH
[2021-03-21] MEDS ORDERED: LORazepam 2 MG/ML VIAL IV PRN (16:00)
--- NOTE | 2021-03-21 16:12 | XRay Report ---
ABDOMEN 1 VIEW(S) INDICATION / CLINICAL INFORMATION: Nausea vomiting. COMPARISON: None available. FINDINGS: TUBES / LINES: None. BOWEL GAS PATTERN: No significant abnormality. ADDITIONAL FINDINGS: No significant additional findings. IMPRESSION: No acute abnormality. Signer Name: Daniele Moore MD Signed: 03/21/2021 4:07 PM Workstation Name: [id number]
[2021-03-21] MEDS: levoFLOXacin 500 MG TAB PO SCH (16:13)
[2021-03-21] MEDS: ONDANSETRON 4 MG/2 ML INJ IV PRN (16:19)
[2021-03-21] MEDS: SODIUM CHLORIDE 0.9% 1000 ML 1,000 ML IV SCH (16:19)
[2021-03-21] MEDS: busPIRone 10 MG TAB PO SCH ×2 (16:56→22:43)
[2021-03-21] MEDS: QUEtiapine 200 MG TAB PO SCH (21:15)
[2021-03-21] MEDS: PANTOPRAZOLE 40 MG INJ IV SCH (21:15)
[2021-03-22 06:11] LABS: BUN/Creatinine Ratio 10; Blood Urea Nitrogen 10 mg/dL (7-17); Calcium 8.3 mg/dL (8.4-10.2); Hemolysis Index 1
[2021-03-22] MEDS: PANTOPRAZOLE 40 MG INJ IV SCH ×2 (09:12→21:31)
[2021-03-22] MEDS: LOSARTAN 50 MG TAB PO SCH (09:12)
[2021-03-22] MEDS: ONDANSETRON 4 MG/2 ML INJ IV PRN (09:12)
[2021-03-22] MEDS: busPIRone 10 MG TAB PO SCH ×3 (09:12→21:30)
--- NOTE | 2021-03-22 09:40 | Progress Note ---
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 Was on antibiotics and has not tolerated them due to vomiting. Now on PPI GI consult requested #Generalized anxiety disorder Continue BuSpar # Bipolar disorder Continue Seroquel 400 mg at nighttime #Hypertension Continue antihypertensive and adjust medications as necessary #DVT prophylaxis On SCDs and GI prophylaxis History Interval history: She complains of nausea and vomiting She has a history of recent H. pylori, barrette esophagus and hiatal hernia GI has been consulted for evaluation Hospitalist Physical - Physical exam Narrative exam: VITAL SIGNS: Reviewed. GENERAL: Awake HEAD: No signs of head trauma. EYES: Pupils are equal. Extraocular motions intact. MOUTH: Oropharynx is normal. NECK: No adenopathy, no JVD. CHEST: Chest with diminished breath sounds bilaterally. No wheezes, rales, or rhonchi. CARDIAC: normal S1 and S2, without murmurs, gallops, or rubs. ABDOMEN: Soft, non tender and non distended. No rebound or guarding, and no masses palpated. Bowel Sounds normal. MUSCULOSKELETAL: No edema NEUROLOGIC EXAM: Alert and oriented x3. No focal neurologic deficits SKIN: No obvious lesions - Constitutional Vitals: Temp Pulse Resp BP Pulse Ox 99.6 F 87 20 113/67 98 03/22/21 08:00 03/22/21 08:00 03/22/21 08:00 03/22/21 08:00 03/22/21 08:00 Results - Labs CBC & Chem 7: 03/21/21 04:31 03/22/21 04:35 Labs: Laboratory Last Values WBC 7.0 K/mm3 (4.5-11.0) 03/21/21 04:31 RBC 4.04 M/mm3 (3.65-5.03) 03/21/21 04:31 Hgb 10.8 gm/dl (10.1-14.3) 03/21/21 04:31 Hct 33.6 % (30.3-42.9) 03/21/21 04:31 MCV 83 fl (79-97) 03/21/21 04:31 MCH 27 pg (28-32) L 03/21/21 04:31 MCHC 32 % (30-34) 03/21/21 04:31 RDW 16.0 % (13.2-15.2) H 03/21/21 04:31 Plt Count 293 K/mm3 (140-440) 03/21/21 04:31 Lymph % (Auto) 26.1 % (13.4-35.0) 03/21/21 04:31 [place] % (Auto) 10.2 % (0.0-7.3) H 03/21/21 04:31 Eos % (Auto) 0.7 % (0.0-4.3) 03/21/21 04:31 Baso % (Auto) 0.4 % (0.0-1.8) 03/21/21 04:31 Lymph # (Auto) 1.8 K/mm3 (1.2-5.4) 03/21/21 04:31 [place] # (Auto) 0.7 K/mm3 (0.0-0.8) 03/21/21 04:31 Eos # (Auto) 0.1 K/mm3 (0.0-0.4) 03/21/21 04:31 Baso # (Auto) 0.0 K/mm3 (0.0-0.1) 03/21/21 04:31 Seg Neutrophils % 62.6 % (40.0-70.0) 03/21/21 04:31 Seg Neutrophils # 4.4 K/mm3 (1.8-7.7) 03/21/21 04:31 PT 12.5 Sec. (12.2-14.9) 03/20/21 Unknown INR 0.95 (0.87-1.13) 03/20/21 Unknown APTT 28.6 Sec. (24.2-36.6) 03/20/21 Unknown Sodium 138 mmol/L (137-145) 03/22/21 04:35 Potassium 3.7 mmol/L (3.6-5.0) 03/22/21 04:35 Chloride 104.5 mmol/L (98-107) 03/22/21 04:35 Carbon Dioxide 25 mmol/L (22-30) 03/22/21 04:35 Anion Gap 12 mmol/L 03/22/21 04:35 BUN 10 mg/dL (7-17) 03/22/21 04:35 Creatinine 1.0 mg/dL (0.6-1.2) 03/22/21 04:35 Estimated GFR > 60 ml/min 03/22/21 04:35 BUN/Creatinine Ratio 10 % 03/22/21 04:35 Glucose 107 mg/dL (65-100) H 03/22/21 04:35 Calcium 8.3 mg/dL (8.4-10.2) L 03/22/21 04:35 Total Bilirubin 0.40 mg/dL (0.1-1.2) 03/21/21 04:31 AST 51 units/L (5-40) H 03/21/21 04:31 ALT 28 units/L (7-56) 03/21/21 04:31 Alkaline Phosphatase 91 units/L (35-129) 03/21/21 04:31 Total Protein 6.8 g/dL (6.3-8.2) 03/21/21 04:31 Albumin 3.4 g/dL (3.9-5) L 03/21/21 04:31 Albumin/Globulin Ratio 1.0 % 03/21/21 04:31 [place]/IV: Voiding Method Toilet Active Medications - Current Medications Current Medications: Generic Name Dose Route Start Last Admin Trade Name Freq PRN Reason Stop Dose Admin Acetaminophen 650 mg 03/20/21 12:46 Acetaminophen 325 Mg Tab PO Q4H PRN Pain MILD(1-3)/Fever >100.5/RAMOS Hydrocodone Bitart/Acetaminophen 2 each 03/20/21 12:46 Hydrocodone/Acetaminophen 5-325 Mg Tab PO Q6H PRN Pain, Moderate (4-6) Al Hydrox/Mg Hydrox/Simethicone 30 ml 03/20/21 17:00 03/20/21 17:09 Alum-Mag Hydroxide-Simethicone [phone]/5ml Oral Liqd 30 Ml PO 30 ml Q4H PRN Administration Indigestion Buspirone HCl 15 mg 03/21/21 17:00 03/22/21 09:12 Buspirone 10 Mg Tab PO 15 mg TID CHERRY Administration Sodium Chloride 1,000 mls @ 42 mls/hr 03/20/21 08:00 03/21/21 16:19 Nacl 0.9% 1000 Ml IV 42 mls/hr DIRECT CHERRY Administration Levofloxacin 500 mg 03/21/21 16:00 03/21/21 16:13 Levofloxacin 500 Mg Tab PO 500 mg Q24H CHERRY Administration Protocol Lorazepam 0.5 mg 03/21/21 16:00 Lorazepam 2 Mg/Ml Vial IV Q12H PRN Anxiety Losartan Potassium 50 mg 03/20/21 18:00 03/22/21 09:12 Losartan 50 Mg Tab PO 50 mg QDAY CHERRY Administration Miscellaneous Medication 1 drop 03/20/21 13:00 Lifitegrast [Xiidra] INTRAOCULA BID CHERRY Ondansetron HCl 4 mg 03/21/21 16:00 03/22/21 09:12 Ondansetron 4 Mg/2 Ml Inj IV 4 mg Q4H PRN Administration Nausea And Vomiting Oxycodone/Acetaminophen 1 tab 03/20/21 08:46 Oxycodone /Acetaminophen 5-325mg Tab PO ONCE PRN Pain, Moderate (4-6) Pantoprazole Sodium 40 mg 03/21/21 22:00 03/22/21 09:12 Pantoprazole 40 Mg Inj IV 40 mg BID CHERRY Administration Quetiapine Fumarate 400 mg 03/20/21 22:00 03/21/21 21:15 Quetiapine 200 Mg Tab PO 400 mg QHS CHERRY Administration Sodium Chloride 10 ml 03/20/21 13:00 03/22/21 09:12 Sodium Chloride 0.9% 10 Ml Flush Syringe IV Not Given BID CHERRY Sodium Chloride 10 ml 03/20/21 12:46 Sodium Chloride 0.9% 10 Ml Flush Syringe IV PRN PRN LINE FLUSH
--- NOTE | 2021-03-22 10:47 | Consultation ---
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 Keys. She states this was her fourth intervention over the last year for this tumor. She had nausea vomiting and GI consultation is obtained. Patient states that she has been having nausea and vomiting off and on since May 2020, at which time she went to [place] and had LIPO 360 done for liposuction. She states that she has been having this on an ongoing fashion e hillary since and that it has been nonprogressive. She has lost 10 pounds during this time. She is able to tolerate bland foods but spicy foods seem to trigger it. She was seen by Dr. Campbell in GI, and underwent an upper endoscopy on February 15 which was relatively normal except for H. pylori. She was started on quadruple therapy on February 24 but only took it for a 1 week because of exacerbation of her nausea and vomiting. Patient denies any significant abdominal pain. There is been no change in bowel habits. There is been no GI bleeding. She does have problems with anxiety, and is seeing a therapist. Of note, she is planning to open up a [email or web address] in the next several months. Medications reviewed. Past History Past Medical History: cancer (L renal cell), other (Renal cell carcinoma left side, Anxiety) Past Surgical History: Other (Cryoablation of the left renal cell carcinoma, LIPOsuction) Social history: no significant social history Family history: no significant family history Medications and Allergies Allergies Allergy/AdvReac Type Severity Reaction Status Date / Time No Known Allergies Allergy Verified 12/24/19 11:20 Home Medications Medication Instructions Recorded Confirmed Last Taken Type Buspirone HCl [busPIRone] 15 mg PO TID 03/20/21 03/20/21 03/19/21 History 15 mg Lifitegrast [Xiidra] 1 drop INTRAOCULA BID 03/20/21 03/20/21 03/19/21 History 1 drop Quetiapine Fumarate [Quetiapine 400 mg PO HS 03/20/21 03/20/21 03/19/21 History Fumarate ER] 400 mg Ciprofloxacin HCl [Ciprofloxacin 250 mg PO BID #14 tablet 03/21/21 Unknown Rx TAB] HYDROcodone/APAP 5-325 [[place] 1 each PO Q6H #30 tablet 03/21/21 Unknown Rx 5/325] Ondansetron [Zofran Odt] 4 mg PO Q4HR PRN #30 tab.rapdis 03/21/21 Unknown Rx Pantoprazole [Protonix TAB] 40 mg PO BID #60 tablet 03/21/21 Unknown Rx Active Meds: Active Medications Acetaminophen (Acetaminophen 325 Mg Tab) 650 mg PO Q4H PRN PRN Reason: Pain MILD(1-3)/Fever >100.5/RAMOS Hydrocodone Bitart/Acetaminophen (Hydrocodone/Acetaminophen 5-325 Mg Tab) 2 ea ch PO Q6H PRN PRN Reason: Pain, Moderate (4-6) Al Hydrox/Mg Hydrox/Simethicone (Alum-Mag Hydroxide-Simethicone [phone]/5ml Oral Liqd 30 Ml) 30 ml PO Q4H PRN PRN Reason: Indigestion Last Admin: 03/20/21 17:09 Dose: 30 ml Documented by: Artificial Tears (Hypromellose 0.5% Ophth Soln 15 Ml) 1 drops OU PRN PRN PRN Reason: Dry Eye(s) Buspirone HCl (Buspirone 10 Mg Tab) 15 mg PO TID [facility] Last Admin: 03/22/21 09:12 Dose: 15 mg Documented by: Sodium Chloride (Nacl 0.9% 1000 Ml) 1,000 mls @ 42 mls/hr IV DIRECT CHERRY Last Admin: 03/21/21 16:19 Dose: 42 mls/hr Documented by: Levofloxacin (Levofloxacin 500 Mg Tab) 500 mg PO Q24H [facility]; Protocol Last Admin: 03/21/21 16:13 Dose: 500 mg Documented by: Lorazepam (Lorazepam 2 Mg/Ml Vial) 0.5 mg IV Q12H PRN PRN Reason: Anxiety Last Admin: 03/22/21 10:13 Dose: 0.5 mg Documented by: Losartan Potassium (Losartan 50 Mg Tab) 50 mg PO QDAY [facility] Last Admin: 03/22/21 09:12 Dose: 50 mg Documented by: Ondansetron HCl (Ondansetron 4 Mg/2 Ml Inj) 4 mg IV Q4H PRN PRN Reason: Nausea And Vomiting Last Admin: 03/22/21 09:12 Dose: 4 mg Documented by: Oxycodone/Acetaminophen (Oxycodone /Acetaminophen 5-325mg Tab) 1 tab PO ONCE PRN PRN Reason: Pain, Moderate (4-6) Pantoprazole Sodium (Pantoprazole 40 Mg Inj) 40 mg IV BID [facility] Last Admin: 03/22/21 09:12 Dose: 40 mg Documented by: Quetiapine Fumarate (Quetiapine 200 Mg Tab) 400 mg PO QHS [facility] Last Admin: 03/21/21 21:15 Dose: 400 mg Documented by: Sodium Chloride (Sodium Chloride 0.9% 10 Ml Flush Syringe) 10 ml IV BID [facility] Last Admin: 03/22/21 09:12 Dose: Not Given Documented by: Sodium Chloride (Sodium Chloride 0.9% 10 Ml Flush Syringe) 10 ml IV PRN PRN PRN Reason: LINE FLUSH Review of Systems All systems: negative (as per HPI) Exam - Constitutional Vitals: Temp Pulse Resp BP Pulse Ox 99.6 F 85 14 113/67 98 03/22/21 08:00 03/22/21 09:45 03/22/21 09:45 03/22/21 08:00 03/22/21 08:00 General appearance: Present: no acute distress - EENT Eyes: Present: PERRL, EOM intact ENT: hearing intact - Respiratory Respiratory effort: normal Respiratory: bilateral: CTA - Cardiovascular Rhythm: regular Heart Sounds: Present: S1 & S2 - Extremities Extremities: No edema - Abdominal General gastrointestinal: Present: soft, non-tender Results - Labs CBC & Chem 7: 03/21/21 04:31 03/22/21 04:35 Labs: Abnormal lab results 03/22/21 Range/Units 04:35 Glucose 107 H (65-100) mg/dL Calcium 8.3 L (8.4-10.2) mg/dL Assessment and Plan 1. Nausea and vomiting -chronic and unchanged since May 2020. Patient did tolerate some dinner last night with [place] food. Differential diagnosis is either biliary versus functional due to anxiety versus a result of her renal cell cancer. If it is the latter, it should improve as her tumor shrinks with the cryoablation. -Get gallbladder ultrasound -We will give trial of Ativan to see if it helps with nausea -Zofran does seem to help some and she can be discharged on this -As patient is tolerating p.o. and is at her baseline, she can be discharged and worked up further as an outpatient.
[2021-03-22] MEDS ORDERED: HYPROMELLOSE 0.5% OPHTH SOLN 15 ML OU PRN (11:00)
--- NOTE | 2021-03-22 12:34 | Progress Note ---
Assessment and Plan Nausea and vomiting are improving, per the patient. Appreciate GI consult and recommendations Will await the results of the u/s of the Gallbladder and likely discharge home tomorrow Subjective Date of service: 03/22/21 Principal diagnosis: Left renal cell carcinoma Interval history: The patient states her nausea and vomiting have improved some. She was able to eat some crackers this morning without vomiting. Anxious to go home. She has not additional complaints at this time. Objective - Constitutional Vitals: Vital Signs - 12hr 03/22/21 03/22/21 03/22/21 02:00 03:59 04:00 Temperature 99.8 F H Pulse Rate 93 H 86 102 H Respiratory 18 Rate Blood Pressure 123/70 O2 Sat by Pulse 98 Oximetry 03/22/21 03/22/21 08:00 09:45 Temperature 99.6 F Pulse Rate 87 85 Respiratory 20 14 Rate Blood Pressure 113/67 O2 Sat by Pulse 98 Oximetry General appearance: Present: no acute distress - Cardiovascular Rhythm: regular - Gastrointestinal General gastrointestinal: Present: soft, non-tender - Labs CBC & Chem 7: 03/21/21 04:31 03/22/21 04:35 Labs: Abnormal lab results 03/22/21 Range/Units 04:35 Glucose 107 H (65-100) mg/dL Calcium 8.3 L (8.4-10.2) mg/dL Medications & Allergies - Medications Allergies/Adverse Reactions: Allergies No Known Allergies Allergy (Verified 12/24/19 11:20) Home Medications: Home Medications Medication Instructions Recorded Confirmed Last Taken Type Buspirone HCl [busPIRone] 15 mg PO TID 03/20/21 03/20/21 03/19/21 History 15 mg Lifitegrast [Xiidra] 1 drop INTRAOCULA BID 03/20/21 03/20/21 03/19/21 History 1 drop Quetiapine Fumarate [Quetiapine 400 mg PO HS 03/20/21 03/20/21 03/19/21 History Fumarate ER] 400 mg Ciprofloxacin HCl [Ciprofloxacin 250 mg PO BID #14 tablet 03/21/21 Unknown Rx TAB] HYDROcodone/APAP 5-325 [[place] 1 each PO Q6H #30 tablet 03/21/21 Unknown Rx 5/325] Ondansetron [Zofran Odt] 4 mg PO Q4HR PRN #30 tab.rapdis 03/21/21 Unknown Rx Pantoprazole [Protonix TAB] 40 mg PO BID #60 tablet 03/21/21 Unknown Rx Active Medications: Generic Name Dose Route Start Last Admin Trade Name Freq PRN Reason Stop Dose Admin Acetaminophen 650 mg 03/20/21 12:46 Acetaminophen 325 Mg Tab PO Q4H PRN Pain MILD(1-3)/Fever >100.5/RAMOS Hydrocodone Bitart/Acetaminophen 2 each 03/20/21 12:46 Hydrocodone/Acetaminophen 5-325 Mg Tab PO Q6H PRN Pain, Moderate (4-6) Al Hydrox/Mg Hydrox/Simethicone 30 ml 03/20/21 17:00 03/20/21 17:09 Alum-Mag Hydroxide-Simethicone [phone]/5ml Oral Liqd 30 Ml PO 30 ml Q4H PRN Administration Indigestion Artificial Tears 1 drops 03/22/21 11:00 Hypromellose 0.5% Ophth Soln 15 Ml OU PRN PRN Dry Eye(s) Buspirone HCl 15 mg 03/21/21 17:00 03/22/21 09:12 Buspirone 10 Mg Tab PO 15 mg TID CHERRY Administration Sodium Chloride 1,000 mls @ 42 mls/hr 03/20/21 08:00 03/21/21 16:19 Nacl 0.9% 1000 Ml IV 42 mls/hr DIRECT CHERRY Administration Levofloxacin 500 mg 03/21/21 16:00 03/21/21 16:13 Levofloxacin 500 Mg Tab PO 500 mg Q24H CHERRY Administration Protocol Lorazepam 0.5 mg 03/21/21 16:00 03/22/21 10:13 Lorazepam 2 Mg/Ml Vial IV 0.5 mg Q12H PRN Administration Anxiety Losartan Potassium 50 mg 03/20/21 18:00 03/22/21 09:12 Losartan 50 Mg Tab PO 50 mg QDAY CHERRY Administration Ondansetron HCl 4 mg 03/21/21 16:00 03/22/21 09:12 Ondansetron 4 Mg/2 Ml Inj IV 4 mg Q4H PRN Administration Nausea And Vomiting Oxycodone/Acetaminophen 1 tab 03/20/21 08:46 Oxycodone /Acetaminophen 5-325mg Tab PO ONCE PRN Pain, Moderate (4-6) Pantoprazole Sodium 40 mg 05/25/21 22:00 03/22/21 09:12 Pantoprazole 40 Mg Inj IV 40 mg BID CHERRY Administration Quetiapine Fumarate 400 mg 03/20/21 22:00 03/21/21 21:15 Quetiapine 200 Mg Tab PO 400 mg QHS CHERRY Administration Sodium Chloride 10 ml 03/20/21 13:00 03/22/21 09:12 Sodium Chloride 0.9% 10 Ml Flush Syringe IV Not Given BID CHERRY Sodium Chloride 10 ml 03/20/21 12:46 Sodium Chloride 0.9% 10 Ml Flush Syringe IV PRN PRN LINE FLUSH
[2021-03-22] MEDS: levoFLOXacin 500 MG TAB PO SCH (15:53)
[2021-03-22] MEDS: QUEtiapine 200 MG TAB PO SCH (21:30)
[2021-03-23] MEDS: busPIRone 10 MG TAB PO SCH (08:00)
[2021-03-23] MEDS: LOSARTAN 50 MG TAB PO SCH (11:41)
[2021-03-23] MEDS: PANTOPRAZOLE 40 MG INJ IV SCH (11:42)
--- NOTE | 2021-03-23 12:13 | Progress Note ---
Assessment and Plan 1. Nausea and vomiting -doing well. Chronic and unchanged since May 2020. Differential diagnosis is either biliary versus functional due to anxiety versus a result of her renal cell cancer. If it is the latter, it should improve as h er tumor shrinks with the cryoablation. -follow up gallbladder ultrasound -Zofran does seem to help some and she can be discharged on this -may give short course of Ativan to help with N/V, for ~ 5 days. - f/u with GI as an outpatient Will sign off. Subjective Date of service: 03/23/21 Principal diagnosis: Left renal cell carcinoma Interval history: Pt doing well. Med po well. Objective - Constitutional Vitals: Vital Signs - 12hr 03/23/21 03/23/21 03/23/21 01:56 02:00 04:48 Temperature 99.4 F Pulse Rate 90 85 Respiratory 20 Rate Blood Pressure 110/71 O2 Sat by Pulse 93 99 Oximetry 03/23/21 03/23/21 03/23/21 06:00 07:39 10:00 Temperature 98.9 F Pulse Rate 85 87 79 Respiratory 18 Rate Blood Pressure 125/79 O2 Sat by Pulse 96 98 Oximetry General appearance: Present: no acute distress - EENT Eyes: PERRL, EOM intact ENT: hearing intact - Respiratory Respiratory effort: normal - Gastrointestinal General gastrointestinal: Present: soft, non-tender - Labs CBC & Chem 7: 03/21/21 04:31 03/22/21 04:35 Medications & Allergies - Medications Allergies/Adverse Reactions: Allergies No Known Allergies Allergy (Verified 12/24/19 11:20) Home Medications: Home Medications Medication Instructions Recorded Confirmed Last Taken Type Buspirone HCl [busPIRone] 15 mg PO TID 03/20/21 03/20/21 03/19/21 History 15 mg Lifitegrast [Xiidra] 1 drop INTRAOCULA BID 03/20/21 03/20/21 03/19/21 History 1 drop Quetiapine Fumarate [Quetiapine 400 mg PO HS 03/20/21 03/20/21 03/19/21 History Fumarate ER] 400 mg Ciprofloxacin HCl [Ciprofloxacin 250 mg PO BID #14 tablet 03/21/21 Unknown Rx TAB] HYDROcodone/APAP 5-325 [[place] 1 each PO Q6H #30 tablet 03/21/21 Unknown Rx 5/325] Ondansetron [Zofran Odt] 4 mg PO Q4HR PRN #30 tab.rapdis 03/21/21 Unknown Rx Pantoprazole [Protonix TAB] 40 mg PO BID #60 tablet 03/21/21 Unknown Rx Active Medications: Generic Name Dose Route Start Last Admin Trade Name Freq PRN Reason Stop Dose Admin Acetaminophen 650 mg 03/20/21 12:46 Acetaminophen 325 Mg Tab PO Q4H PRN Pain MILD(1-3)/Fever >100.5/RAMOS Hydrocodone Bitart/Acetaminophen 2 each 03/20/21 12:46 Hydrocodone/Acetaminophen 5-325 Mg Tab PO Q6H PRN Pain, Moderate (4-6) Al Hydrox/Mg Hydrox/Simethicone 30 ml 03/20/21 17:00 03/20/21 17:09 Alum-Mag Hydroxide-Simethicone 139-646-58sq/5ml Oral Liqd 30 Ml PO 30 ml Q4H PRN Administration Indigestion Artificial Tears 1 drops 03/22/21 11:00 Hypromellose 0.5% Ophth Soln 15 Ml OU PRN PRN Dry Eye(s) Buspirone HCl 15 mg 03/21/21 17:00 03/22/21 21:30 Buspirone 10 Mg Tab PO 15 mg TID CHERRY Administration Levofloxacin 500 mg 03/21/21 16:00 03/22/21 15:53 Levofloxacin 500 Mg Tab PO 500 mg Q24H CHERRY Administration Protocol Lorazepam 0.5 mg 03/21/21 16:00 03/22/21 10:13 Lorazepam 2 Mg/Ml Vial IV 0.5 mg Q12H PRN Administration Anxiety Losartan Potassium 50 mg 03/20/21 18:00 03/22/21 09:12 Losartan 50 Mg Tab PO 50 mg QDAY CHERRY Administration Ondansetron HCl 4 mg 03/21/21 16:00 03/22/21 09:12 Ondansetron 4 Mg/2 Ml Inj IV 4 mg Q4H PRN Administration Nausea And Vomiting Oxycodone/Acetaminophen 1 tab 03/20/21 08:46 Oxycodone /Acetaminophen 5-325mg Tab PO ONCE PRN Pain, Moderate (4-6) Pantoprazole Sodium 40 mg 03/23/21 16:30 Pantoprazole 40 Mg Tab PO BIDAC CHERRY Quetiapine Fumarate 400 mg 03/20/21 22:00 03/22/21 21:30 Quetiapine 200 Mg Tab PO 400 mg QHS CHERRY Administration Sodium Chloride 10 ml 03/20/21 13:00 03/22/21 21:31 Sodium Chloride 0.9% 10 Ml Flush Syringe IV 10 ml BID CHERRY Administration Sodium Chloride 10 ml 03/20/21 12:46 Sodium Chloride 0.9% 10 Ml Flush Syringe IV PRN PRN LINE FLUSH
--- NOTE | 2021-03-23 12:27 | Progress Note ---
Assessment and Plan Assessment and plan: #Status post cryoablation of left renal carcinoma Has no complaints except for back pain Mgt as per primary team #Nausea and vomiting. Has barrette esophagus and was recently found to have h.pylori on recent EGD. Was on antibiotics and has not tolerated them due to vomiting. Now on PPI GI recs appreciated On zofran PRN and ativan> Will need to be discharged on these per GI (Rx printed and signed) Awaiting US abdomen #Generalized anxiety disorder Continue BuSpar # Bipolar disorder Continue Seroquel 400 mg at nighttime #Hypertension Continue antihypertensive and adjust medications as necessary #DVT prophylaxis On SCDs and GI prophylaxis History Interval history: She notes improved symptoms Abdominal ultrasound pending. Hospitalist Physical - Physical exam Narrative exam: VITAL SIGNS: Reviewed. GENERAL: Awake HEAD: No signs of head trauma. EYES: Pupils are equal. Extraocular motions intact. MOUTH: Oropharynx is normal. NECK: No adenopathy, no JVD. CHEST: Chest with diminished breath sounds bilaterally. No wheezes, rales, or rhonchi. CARDIAC: normal S1 and S2, without murmurs, gallops, or rubs. ABDOMEN: Soft, non tender and non distended. No rebound or guarding, and no masses palpated. Bowel Sounds normal. MUSCULOSKELETAL: No edema NEUROLOGIC EXAM: Alert and oriented x3. No focal neurologic deficits SKIN: No obvious lesions - Constitutional Vitals: Temp Pulse Resp BP Pulse Ox 98.9 F 79 18 125/79 98 03/23/21 07:39 03/23/21 10:00 03/23/21 07:39 03/23/21 07:39 03/23/21 10:00 Results - Labs CBC & Chem 7: 03/21/21 04:31 03/22/21 04:35 Labs: Laboratory Last Values WBC 7.0 K/mm3 (4.5-11.0) 03/21/21 04:31 RBC 4.04 M/mm3 (3.65-5.03) 03/21/21 04:31 Hgb 10.8 gm/dl (10.1-14.3) 03/21/21 04:31 Hct 33.6 % (30.3-42.9) 03/21/21 04:31 MCV 83 fl (79-97) 03/21/21 04:31 MCH 27 pg (28-32) L 03/21/21 04:31 MCHC 32 % (30-34) 03/21/21 04:31 RDW 16.0 % (13.2-15.2) H 03/21/21 04:31 Plt Count 293 K/mm3 (140-440) 03/21/21 04:31 Lymph % (Auto) 26.1 % (13.4-35.0) 03/21/21 04:31 [place] % (Auto) 10.2 % (0.0-7.3) H 03/21/21 04:31 Eos % (Auto) 0.7 % (0.0-4.3) 03/21/21 04:31 Baso % (Auto) 0.4 % (0.0-1.8) 03/21/21 04:31 Lymph # (Auto) 1.8 K/mm3 (1.2-5.4) 03/21/21 04:31 [place] # (Auto) 0.7 K/mm3 (0.0-0.8) 03/21/21 04:31 Eos # (Auto) 0.1 K/mm3 (0.0-0.4) 03/21/21 04:31 Baso # (Auto) 0.0 K/mm3 (0.0-0.1) 03/21/21 04:31 Seg Neutrophils % 62.6 % (40.0-70.0) 03/21/21 04:31 Seg Neutrophils # 4.4 K/mm3 (1.8-7.7) 03/21/21 04:31 PT 12.5 Sec. (12.2-14.9) 03/20/21 Unknown INR 0.95 (0.87-1.13) 03/20/21 Unknown APTT 28.6 Sec. (24.2-36.6) 03/20/21 Unknown Sodium 138 mmol/L (137-145) 03/22/21 04:35 Potassium 3.7 mmol/L (3.6-5.0) 03/22/21 04:35 Chloride 104.5 mmol/L (98-107) 03/22/21 04:35 Carbon Dioxide 25 mmol/L (22-30) 03/22/21 04:35 Anion Gap 12 mmol/L 03/22/21 04:35 BUN 10 mg/dL (7-17) 03/22/21 04:35 Creatinine 1.0 mg/dL (0.6-1.2) 03/22/21 04:35 Estimated GFR > 60 ml/min 03/22/21 04:35 BUN/Creatinine Ratio 10 % 03/22/21 04:35 Glucose 107 mg/dL (65-100) H 03/22/21 04:35 Calcium 8.3 mg/dL (8.4-10.2) L 03/22/21 04:35 Total Bilirubin 0.40 mg/dL (0.1-1.2) 03/21/21 04:31 AST 51 units/L (5-40) H 03/21/21 04:31 ALT 28 units/L (7-56) 03/21/21 04:31 Alkaline Phosphatase 91 units/L (35-129) 03/21/21 04:31 Total Protein 6.8 g/dL (6.3-8.2) 03/21/21 04:31 Albumin 3.4 g/dL (3.9-5) L 03/21/21 04:31 Albumin/Globulin Ratio 1.0 % 03/21/21 04:31 [place]/IV: Voiding Method Toilet Active Medications - Current Medications Current Medications: Generic Name Dose Route Start Last Admin Trade Name Freq PRN Reason Stop Dose Admin Acetaminophen 650 mg 03/20/21 12:46 Acetaminophen 325 Mg Tab PO Q4H PRN Pain MILD(1-3)/Fever >100.5/RAMOS Hydrocodone Bitart/Acetaminophen 2 each 03/20/21 12:46 Hydrocodone/Acetaminophen 5-325 Mg Tab PO Q6H PRN Pain, Moderate (4-6) Al Hydrox/Mg Hydrox/Simethicone 30 ml 03/20/21 17:00 03/20/21 17:09 Alum-Mag Hydroxide-Simethicone 233-565-00os/5ml Oral Liqd 30 Ml PO 30 ml Q4H PRN Administration Indigestion Artificial Tears 1 drops 03/22/21 11:00 Hypromellose 0.5% Ophth Soln 15 Ml OU PRN PRN Dry Eye(s) Buspirone HCl 15 mg 03/21/21 17:00 03/22/21 21:30 Buspirone 10 Mg Tab PO 15 mg TID CHERRY Administration Levofloxacin 500 mg 03/21/21 16:00 03/22/21 15:53 Levofloxacin 500 Mg Tab PO 500 mg Q24H CHERRY Administration Protocol Lorazepam 0.5 mg 03/21/21 16:00 03/22/21 10:13 Lorazepam 2 Mg/Ml Vial IV 0.5 mg Q12H PRN Administration Anxiety Losartan Potassium 50 mg 03/20/21 18:00 03/22/21 09:12 Losartan 50 Mg Tab PO 50 mg QDAY CHERRY Administration Ondansetron HCl 4 mg 03/21/21 16:00 03/22/21 09:12 Ondansetron 4 Mg/2 Ml Inj IV 4 mg Q4H PRN Administration Nausea And Vomiting Oxycodone/Acetaminophen 1 tab 03/20/21 08:46 Oxycodone /Acetaminophen 5-325mg Tab PO ONCE PRN Pain, Moderate (4-6) Pantoprazole Sodium 40 mg 03/23/21 16:30 Pantoprazole 40 Mg Tab PO BIDAC CHERRY Quetiapine Fumarate 400 mg 03/20/21 22:00 03/22/21 21:30 Quetiapine 200 Mg Tab PO 400 mg QHS CHERRY Administration Sodium Chloride 10 ml 03/20/21 13:00 03/22/21 21:31 Sodium Chloride 0.9% 10 Ml Flush Syringe IV 10 ml BID CHERRY Administration Sodium Chloride 10 ml 03/20/21 12:46 Sodium Chloride 0.9% 10 Ml Flush Syringe IV PRN PRN LINE FLUSH
[2021-03-23 12:36] VITALS: BP 128/95
--- NOTE | 2021-03-23 12:54 | Discharge Summary ---
Providers - Providers Date of Admission: 03/20/21 12:46 Date of discharge: 03/23/21 Attending physician: ITNO KEYS 03/20/21 12:46 Consult to Physician [CONS] Routine Comment: Consulting Provider: GALA CELIS Physician Instructions: Reason For Exam: medical management 03/21/21 14:53 Consult to Physician [CONS] Routine Comment: Consulting Provider: GHAZAL MAYO Physician Instructions: Reason For Exam: n/v for 1-2 weeks, recent h pylori inf part tx Primary care physician: [facility] Hospitalization Condition: Good Hospital course: Patient status post renal cryoablation. Prior to her presentation and in her postop period, the patient experienced nausea and decreased p.o. intake. On time of examination today, the patient is tolerating a diet well on Zofran and Ativan. No complaints of any pain. Disposition: DC- TO HOME OR SELFCARE Final Discharge Diagnosis (Prints w/discharge instructions): Renal cell carcinoma Core Measure Documentation - Palliative Care Palliative Care/ Comfort Measures: Not Applicable - Core Measures Any of the following diagnoses?: none - VTE Discharge Requirements Deep Vein Thrombosis/Pulmonary Embolism Present on Admission: No Has pt received <5 days of overlap therapy or INR<2.0: No Anticoagulant overlap therapy prescribed at discharge: No Contraindication No Overlap Therapy order at DC: Not Indicated Exam - Constitutional Vitals: Temp Pulse Resp BP Pulse Ox 99.1 F 93 H 19 128/95 95 03/23/21 11:17 03/23/21 11:17 03/23/21 11:17 03/23/21 11:17 03/23/21 11:17 General appearance: Present: no acute distress - EENT Eyes: Present: EOM intact ENT: hearing intact - Neck Neck: Present: supple, normal ROM - Respiratory Respiratory effort: normal - Abdominal Female genitourinary: Present: deferred - Rectal Rectal Exam: deferred - Psychiatric Psychiatric: appropriate mood/affect, cooperative Plan Activity: advance as tolerated Weight Bearing Status: Weight Bear as Tolerated Diet: regular Wound: keep clean and dry, per your surgeon's advice Follow up with: PRIMARY CARE, [Primary Care Provider] - 7 Days Forms: OPU Post Liver Biopsy DC Instr Prescriptions: LORazepam [Ativan] 0.5 mg PO BID PRN #10 tab PRN Reason: Nausea and vomiting Ciprofloxacin HCl [Ciprofloxacin TAB] 250 mg PO BID #14 tablet HYDROcodone/APAP 5-325 [[place] 5/325] 1 each PO Q6H #30 tablet Pantoprazole [Protonix TAB] 40 mg PO BID #60 tablet Ondansetron HCl [Zofran] 4 mg PO Q6HR PRN #30 tablet PRN Reason: Nausea And Vomiting Ondansetron [Zofran Odt] 4 mg PO Q4HR PRN #30 tab.rapdis PRN Reason: Nausea
--- NOTE | 2021-03-23 13:29 | Ultrasound Report ---
LIMITED RUQ ABDOMINAL ULTRASOUND INDICATION: Nausea and vomiting. COMPARISON: No relevant prior imaging study available. FINDINGS: Pancreas: Visualized portions show no significant abnormality. Abdominal Aorta: No significant abnormality. IVC: No significant abnormality. Liver: The liver measures 14.9 cm in length. No significant abnormality. Normal hepatopedal blood fl ow in the main portal vein. Gallbladder: No significant abnormality. Bile ducts: No significant abnormality. Common bile duct measures 4 mm. Right kidney: No significant abnormality visualized. Free fluid: None. Additional Findings: None. IMPRESSION: Normal exam. Signer Name: Mario Beal Jr, MD Signed: 03/23/2021 1:24 PM Workstation Name: [id number]
[2021-03-23] MEDS ORDERED: PANTOPRAZOLE 40 MG TAB PO SCH (16:30)
--- NOTE | 2021-03-30 15:44 | Cat Scan Report ---
PLEASE SEE THE [facility]
== END 2021-03-23 15:12 | disposition home or self-care (01) | DRG 658 ==
LOC: CATHLABREC 06:27 → CT 06:27 → 4A 12:46
PROVIDERS: ADMIT Radiology Diagnostic Radiology; ATTEND Radiology Diagnostic Radiology
PROC: 0T513ZZ Destruction of Left Kidney, Percutaneous Approach (ICD-10-PCS; principal; 2021-03-20)
DX: C64.2 Malignant neoplasm of left kidney, except renal pelvis (principal); F31.9 Bipolar disorder, unspecified; I10 Essential (primary) hypertension; F41.1 Generalized anxiety disorder; K44.9 Diaphragmatic hernia without obstruction or gangrene; Z79.899 Other long term (current) drug therapy; Z79.891 Long term (current) use of opiate analgesic
CPT/HCPCS: 36415; 50593; 74018; 76705; 77013; 80048; 80053; 85025; 85610; 85730; G0378; C9113; J0360; J0690; J1170; J2060; J2175; J2250; J2405; J2704; J2710; J7030

== ENCOUNTER 2021-05-06 19:00 | Emergency (ER) | payer MEDICAID ==
--- NOTE | 2021-05-06 19:11 | Event Note ---
ED Screening Note ED Screening Note: Patient is a 61-year-old female presents emergency room complaints of nausea and vomiting that began a week ago She states whenever she tries to eat or drink something it comes back up She has associated chest pain and upper abdominal pain she has a history of [place]'s esophagus and has been taking her omeprazole as prescribed but it is not relieving her pain This initial assessment/diagnostic orders/clinical plan/treatment(s) is/are subject to change based on patients health status, clinical progression and re- assessment by fellow clinical providers in the ED. Further treatment and workup at subsequent clinical providers discretion. Patient/guardian urged not to elope from the ED as their condition may be serious if not clinically assessed and managed. Initial orders include: labs, xr, urine,ekg
[2021-05-06 19:30] LABS: Basophils % (Auto) 0.4 % (0.0-1.8); Eosinophils # (Auto) 0.1 K/mm3 (0.0-0.4); Eosinophils % (Auto) 0.6 % (0.0-4.3); Hemoglobin 12.3 gm/dl (10.1-14.3); Lymphocytes # (Auto) 3.1 K/mm3 (1.2-5.4); Lymphocytes % (Auto) 32.6 % (13.4-35.0); Mean Corpuscular HGB Conc 33 % (30-34); Mean Corpuscular Volume 83 fl (79-97); Monocytes # (Auto) 0.9 K/mm3 (0.0-0.8); Monocytes % (Auto) 9.4 % (0.0-7.3); Platelet Count 417 K/mm3 (140-440); Red Cell Distribution Width 16.4 % (13.2-15.2)
--- NOTE | 2021-05-06 19:44 | XRay Report ---
CHEST 2 VIEWS INDICATION: Chest Pain. COMPARISON: None FINDINGS: SUPPORT DEVICES: None. HEART: Within normal limits. LUNGS/PLEURA: No acute air space or interstitial disease. No pneumothorax. ADDITIONAL FINDINGS: None. IMPRESSION: 1. No acute findings. Signer Name: Michael Reyes MD Signed: 05/06/2021 7:40 PM Workstation Name: [id number]
[2021-05-06 19:51] LABS: Alanine Aminotransferase 14 units/L (7-56); BUN/Creatinine Ratio 13; Blood Urea Nitrogen 15 mg/dL (7-17); Calcium 9.7 mg/dL (8.4-10.2); Hemolysis Index 4
[2021-05-06 20:01] LABS: Bilirubin,Urine NEG (Negative); Blood,Urine NEG (Negative); Color,Urine Yellow (Yellow); Mucus,Urine FEW /HPF; Protein,Urine <15 mg/dL mg/dL (Negative); Urobilinogen,Urine < 2.0 mg/dL (<2.0)
[2021-05-06] MEDS ORDERED: FAMOTIDINE 20 MG/2 ML INJ IV ONE (21:44)
[2021-05-06] MEDS ORDERED: PANTOPRAZOLE 40 MG INJ IV ONE (21:44)
[2021-05-06] MEDS ORDERED: ALUM-MAG HYDROXIDE-SIMETHICONE 200-200-20MG/5ML ORAL LIQD 30 ML PO ONE (21:44)
[2021-05-06] MEDS ORDERED: HYOSCYAMINE SUBL 0.125 MG TAB SL ONE (21:44)
[2021-05-06] MEDS ORDERED: LIDOCAINE VISCOUS 2% 15 ML ORAL LIQD PO ONE (21:44)
--- NOTE | 2021-05-06 21:50 | Emergency Department Report ---
ED General Adult HPI - General Chief complaint: Chest Pain Stated complaint: PAIN IN CHEST HEART BURN Time Seen by Provider: 05/06/21 19:10 Source: patient Mode of arrival: Ambulatory Limitations: No Limitations - History of Present Illness Initial comments: 61-year-old female patient with history of Glasgow's esophagus and renal cell carcinoma status post cryoablation this year presents to the emergency department with complaints of chest pain, nausea, and vomiting for 1 week. Patient was evaluated by journeyman glazier and underwent an endoscopy recently, at which time she was diagnosed with H. pylori and treated with antibiotics plus proton pump inhibitors. Patient states her H2 blockers and PPIs are typically effective in controlling her symptoms, but these medications have not been helpful over the last week. No known history of cardiac disease. Denies fever, chills, lower abdominal pain, hematemesis, rectal bleeding, dizziness, weakness, syncope. Denies all other complaints at this time. - Related Data Home Medications Medication Instructions Recorded Confirmed Last Taken Buspirone HCl [busPIRone] 15 mg PO TID 03/20/21 03/20/21 03/19/21 15 mg Lifitegrast [Xiidra] 1 drop INTRAOCULA BID 03/20/21 03/20/21 03/19/21 1 drop Quetiapine Fumarate [Quetiapine 400 mg PO HS 03/20/21 03/20/21 03/19/21 Fumarate ER] 400 mg Previous Rx's Medication Instructions Recorded Last Taken Type Ciprofloxacin HCl [Ciprofloxacin 250 mg PO BID #14 tablet 03/21/21 Unknown Rx TAB] HYDROcodone/APAP 5-325 [[place] 1 each PO Q6H #30 tablet 03/21/21 Unknown Rx 5/325] Ondansetron [Zofran Odt] 4 mg PO Q4HR PRN #30 tab.rapdis 03/21/21 Unknown Rx Pantoprazole [Protonix TAB] 40 mg PO BID #60 tablet 03/21/21 Unknown Rx LORazepam [Ativan] 0.5 mg PO BID PRN #10 tab 03/23/21 Unknown Rx Ondansetron HCl [Zofran] 4 mg PO Q6HR PRN #30 tablet 03/23/21 Unknown Rx Sucralfate [Carafate] 1 gm PO Q6HR 10 Days #1 bottle 05/07/21 Unknown Rx Allergies Allergy/AdvReac Type Severity Reaction Status Date / Time No Known Allergies Allergy Verified 12/24/19 11:20 ED Review of Systems ROS: Stated complaint: PAIN IN CHEST HEART BURN Other details as noted in HPI Other: GENERAL: Negative for fever, chills, weight change, anorexia, fatigue. ENT: Negative for ear pain, difficulty hearing, sore throat, nasal congestion, epistaxis. CARDIOVASCULAR: Positive for chest pain. PULMONARY: Negative for cough, dyspnea, wheezing, orthopnea, cyanosis. GASTROINTESTINAL: Positive for abdominal pain, nausea, vomiting. MUSCULOSKELETAL: Negative for joint pain, joint swelling, myalgias, back pain, neck pain. NEUROLOGICAL: Negative for headache, seizure, syncope, paresthesias, weakness. INTEGUMENTARY: Negative for erythema, rash, diaphoresis, laceration, ecchymosis. HEMATOLOGICAL: Negative for hemoptysis, hematemesis, hematochezia, hematuria. PSYCHIATRIC: Negative for hallucinations, suicidal ideation, homicidal ideation, anxiety, depression. ED Past Medical Hx - Past Medical History Previous Medical History?: Yes Hx Hypertension: No Hx Congestive Heart Failure: No Hx Diabetes: No Hx GERD: Yes Hx Renal Disease: Yes (left kidney CA) Hx of Cancer: Yes (Kidney) Hx Arthritis: Yes Hx Asthma: No Hx COPD: No Hx HIV: No Additional medical history: Glasgow's Disease - Surgical History Past Surgical History?: Yes Additional Surgical History: Kidney - Social History Smoking Status: Never Smoker Substance Use Type: None - Medications Home Medications: Home Medications Medication Instructions Recorded Confirmed Last Taken Type Buspirone HCl [busPIRone] 15 mg PO TID 03/20/21 03/20/21 03/19/21 History 15 mg Lifitegrast [Xiidra] 1 drop INTRAOCULA BID 03/20/21 03/20/21 03/19/21 History 1 drop Quetiapine Fumarate [Quetiapine 400 mg PO HS 03/20/21 03/20/21 03/19/21 History Fumarate ER] 400 mg Ciprofloxacin HCl [Ciprofloxacin 250 mg PO BID #14 tablet 03/21/21 Unknown Rx TAB] HYDROcodone/APAP 5-325 [[place] 1 each PO Q6H #30 tablet 03/21/21 Unknown Rx 5/325] Ondansetron [Zofran Odt] 4 mg PO Q4HR PRN #30 tab.rapdis 03/21/21 Unknown Rx Pantoprazole [Protonix TAB] 40 mg PO BID #60 tablet 03/21/21 Unknown Rx LORazepam [Ativan] 0.5 mg PO BID PRN #10 tab 03/23/21 Unknown Rx Ondansetron HCl [Zofran] 4 mg PO Q6HR PRN #30 tablet 03/23/21 Unknown Rx Sucralfate [Carafate] 1 gm PO Q6HR 10 Days #1 bottle 05/07/21 Unknown Rx ED Physical Exam - General Limitations: No Limitations - Other Other exam information: General: Awake and alert. No acute distress. Head: Atraumatic, normocephalic. Eyes: EOMI. Pupils are equal and round. Normal sclera and conjunctiva. ENT: Oral mucosa is moist. Normal pharyngeal exam. Neck: Supple. No lymphadenopathy. Pulmonary: No respiratory distress. Clear to auscultation bilaterally. Cardiac: Regular rate and rhythm. Pulses are palpable and equal bilaterally. No lower extremity cyanosis or edema. Skin: Warm and dry. No rashes. Abdomen: Soft, non-tender, non-protuberant. Patient reports chest pain and epigastric pain without reproducible tenderness, guarding, rigidity, or rebound. Bowel sounds are normal. No organomegaly or masses noted. Back: Normal alignment. No CVA tenderness. Extremities: Symmetrical. Full range of motion intact. Neurological: Alert and oriented, appropriately interactive, no focal deficits. Psych: Cooperative. Appropriate mood and affect. Speech is evenly metered. Thoughts are logically construed. ED Course Vital Signs 05/06/21 05/07/21 19:06 01:20 Temperature 98.6 F 98.2 F Pulse Rate 104 H 89 Respiratory 16 16 Rate Blood Pressure 107/79 Blood Pressure 136/86 [Left] O2 Sat by Pulse 99 100 Oximetry ED Medical Decision Making - Lab Data Result diagrams: 05/06/21 19:14 05/06/21 19:14 - EKG Data 05/06/21 21:50 EKG shows normal sinus rhythm with a ventricular rate of 95 bpm. Normal axis. Normal MT interval. Normal QT interval. Good R wave progression. No ST segment changes. Over read by attending emergency physician, who agrees with interpretation. - Radiology Data [facility] [address] [place] [address] Cat Scan Report Signed Patient: BLADIMIR SORIANO MR#: [id number] : 1960 Acct:[id number] Age/Sex: 61 / F ADM Date: 05/06/21 Loc: ED Attending Dr: Ordering Physician: NEHA MELCHOR Date of Service: 05/06/21 Procedure(s): CT angio chest Accession Number(s): [id number] cc: NEHA MELCHOR CTA CHEST WITH CONTRAST INDICATION / CLINICAL INFORMATION: chest pain/tachy/hx cancer; GI meds not he lping. TECHNIQUE: Axial CT images were obtained through the chest after injection of IV contrast. 3 plane MIP and/or 3D reconstructions were produced. All CT scans at this location are performed using CT dose reduction for ALARA by means of automated exposure control. COMPARISON: None available. FINDINGS: PULMONARY ARTERIES: No central or segmental pulmonary embolus. THORACIC AORTA: No significant abnormality. HEART: No significant abnormality. ADENOPATHY: No significant adenopathy. LUNGS/PLEURA: No focal airspace consolidation. No pleural effusion. No pneumot horax. ADDITIONAL FINDINGS: Moderate hiatal hernia with wall thickening of the distal esophagus. UPPER ABDOMEN: Known lower pole left renal mass is not imaged. No acute findings in the upper abdomen. SKELETAL STRUCTURES: No significant osseous abnormality. IMPRESSION: 1. No evidence of pulmonary embolus. No acute airspace disease. 2. Moderate hiatal hernia with wall thickening of the distal esophagus, may reflect esophagitis. Signer Name: Radha Mckeon MD Signed: 05/06/2021 11:19 PM Workstation Name: [id number] Transcribed By: JS Dictated By: RADHA MCKEON MD Electronically Authenticated By: RADHA MCKEON MD Signed Date/Time: 05/06/212318 DD/ 15 TD/TT: - Medical Decision Making Differential diagnosis including but not limited to: acute coronary syndrome, pericarditis, pericardial effusion/cardiac tamponade, pulmonary embolims, Boerhaave syndrome, GERD/esophagitis, pancreatitis, peptic ulcer disease, cholecystitis, cholelithiasis, ascending cholangitis On re-evaluation, patient is stable and symptoms have improved. Tachycardia resolved. No further vomiting in the emergency department. Tolerating oral intake without difficulty. EKG without acute injury pattern. Initial and repeat troponin within normal limits. Labs and urinalysis are unremarkable. Patient is not an appropriate candidate for PE rule-out using risk stratification criteria (i.e. PERC) due to chest pain in the setting of tachycardia and recent history of renal cell carcinoma. CTA of the chest was obtained and showed evidence of moderate hiatal hernia as well as esophagitis. No clinical indication for further diagnostic work-up on an emergent basis at this time. Patient will be discharged home with prescription for Carafate to take in addition to her other GI medications as well as referral to general surgery for possible hernia repair. Patient expressed understanding and is agreeable to plan of care. Dietary modifications discussed. Strict return precautions provided. Repeat exam is unremarkable and benign. History, exam, diagnostic testing, and current condition do not suggest worrisome pathology to warrant further testing, continued ED treatment, admission, or surgical evaluation at this point. Given the low probability of a significant medical illness, it would be more likely to result in harm than benefit to perform further testing at this stage. Discussed findings, presumptive diagnosis, need for follow-up and specific signs/symptoms that should prompt immediate return to the emergency department. Instructions were explained in detail to the patient in addition to giving written discharge information. Patient expressed understanding and was given the opportunity to ask questions, all of which were satisfactorily answered prior to discharge home. Critical care attestation.: If time is entered above; I have spent that time in minutes in the direct care of this critically ill patient, excluding procedure time. ED Disposition Clinical Impression: Hiatal hernia, Esophagitis Disposition: DC-01 TO HOME OR SELFCARE Is pt being admited?: No Does the pt Need Aspirin: No Condition: Stable Instructions: Esophagitis, Hiatal Hernia Additional Instructions: Continue medications as previously prescribed. Take Carafate as directed. Avoid greasy/fatty/spicy/acidic foods, which may worsen your symptoms. Avoid alcohol, which may worsen your symptoms. Avoid lying down within 3 hours of eating or drinking. Follow-up with general surgery and journeyman glazier this week. Call Saturday to schedule an appointment. See referral information below. Return to the emergency department immediately for new or worsening symptoms. Prescriptions: Sucralfate [Carafate] 1 gm PO Q6HR 10 Days #1 bottle Referrals: BRANDEE ISRAEL MD [Staff Physician] - 3-5 Days [facility] [Provider Group] - 3-5 Days Time of Disposition: 00:47
[2021-05-06 22:18] LABS: INR 0.92 (0.87-1.13); Partial Thromboplastin Time 27.2 Sec. (24.2-36.6)
--- NOTE | 2021-05-06 23:24 | Cat Scan Report ---
CTA CHEST WITH CONTRAST INDICATION / CLINICAL INFORMATION: chest pain/tachy/hx cancer; GI meds not helping. TECHNIQUE: Axial CT images were obtained through the chest after injection of IV contrast. 3 plane DC P and/or 3D reconstructions were produced. All CT scans at this location are performed using CT dose reduction for ALARA by means of automated exposure control. COMPARISON: None available. FINDINGS: PULMONARY ARTERIES: No central or segmental pulmonary embolus. THORACIC AORTA: No significant abnormality. HEART: No significant abnormality. ADENOPATHY: No significant adenopathy. LUNGS/PLEURA: No focal airspace consolidation. No pleural effusion. No pneumothorax. ADDITIONAL FINDINGS: Moderate hiatal hernia with wall thickening of the distal esophagus. UPPER ABDOMEN: Known lower pole left renal mass is not imaged. No acute findings in the upper abdomen . SKELETAL STRUCTURES: No significant osseous abnormality. IMPRESSION: 1. No evidence of pulmonary embolus. No acute airspace disease. 2. Moderate hiatal hernia with wall thickening of the distal esophagus, may reflect esophagitis. Signer Name: Maninder Mckeon MD Signed: 05/06/2021 11:19 PM Workstation Name: [id number]
[2021-05-07 02:48] VITALS: BP 136/86
--- NOTE | 2021-05-08 17:56 | Electrocardiograph Report ---
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
== END 2021-05-07 01:20 | disposition home or self-care (01) ==
LOC: ED 19:00
DX: K44.9 Diaphragmatic hernia without obstruction or gangrene (principal); K20.90 Esophagitis, unspecified without bleeding; K21.9 Gastro-esophageal reflux disease without esophagitis; M19.91 Primary osteoarthritis, unspecified site; Z98.890 Other specified postprocedural states; Z79.899 Other long term (current) drug therapy
CPT/HCPCS: 36415; 71046; 71275; 80053; 81001; 83690; 84484; 85025; 85610; 85730; 93005; 96374; 96375; 99285; C9113; Q9967

== ENCOUNTER 2021-07-11 11:03 | Outpatient (CLI) | payer MEDICAID ==
[2021-07-11 12:12] LABS: Blood Urea Nitrogen 15 mg/dL (7-17)
--- NOTE | 2021-07-11 14:12 | Magnetic Resonance Report ---
MRI ABDOMEN WITHOUT AND WITH CONTRAST INDICATION / CLINICAL INFORMATION: MALIGNANT NEOPLASM OF UNSPECIFIED KIDNEY,EXCEPT RENAL PELVIS. TECHNIQUE: Multiplanar, multisequence series were obtained through the abdomen. 19 cc of Clariscan is administered. COMPARISON: 01/13/2021 FINDINGS: LOWER CHEST: No significant abnormality. LIVER: No significant abnormality. GALLBLADDER: No significant abnormality. BILE DUCTS: No significant abnormality. PANCREAS: No significant abnormality. SPLEEN: No significant abnormality. ADRENALS: No significant abnormality. RIGHT KIDNEY / URETER: No significant abnormality. LEFT KIDNEY / URETER: Changes of interval cryoablation of the lesion in the lower pole the left kidne y are noted. There is a 2.1 cm soft tissue structure at the site. There is some stranding in the janie cent fat. The appearance correlates with post ablation changes. There is mild peripheral enhancement around the lesion. STOMACH / VISUALIZED BOWEL: There is PERITONEUM: No free fluid. No free air. No fluid collection. LYMPH NODES: No significant adenopathy. AORTA / ARTERIES: No significant abnormality. IVC / VEINS: No significant abnormality. ADDITIONAL FINDINGS: None. SKELETAL SYSTEM: No significant abnormality. IMPRESSION: 1. Postcryoablation changes are noted in the lesion in the lower pole of the left kidney. No metastat ic disease is seen. Signer Name: Manohar Membreno MD Signed: 07/11/2021 2:07 PM Workstation Name: [id number]
== END 2021-07-11 11:04 | disposition home or self-care (01) ==
LOC: MRI 11:03
PROVIDERS: ATTEND Radiology Diagnostic Radiology
DX: C64.9 Malignant neoplasm of unspecified kidney, except renal pelvis (principal); Z98.890 Other specified postprocedural states
CPT/HCPCS: 36415; 74183; 82565; 84520; A9575

== ENCOUNTER 2021-08-10 10:45 | Emergency (ER) | payer MEDICAID ==
[2021-08-10] MEDS ORDERED: PANTOPRAZOLE 40 MG TAB PO ONE (11:51)
[2021-08-10] MEDS ORDERED: LIDOCAINE VISCOUS 2% 15 ML ORAL LIQD PO ONE (11:51)
[2021-08-10] MEDS ORDERED: ALUM-MAG HYDROXIDE-SIMETHICONE 200-200-20MG/5ML ORAL LIQD 30 ML PO ONE (11:51)
--- NOTE | 2021-08-10 11:52 | Emergency Department Report ---
ED Abdominal Pain HPI - General Chief Complaint: Abdominal Pain Stated Complaint: VOMITING BLOOD PUI?: No Time Seen by Provider: 08/10/21 11:50 Source: patient Mode of arrival: Ambulatory Limitations: No Limitations - History of Present Illness Initial Comments: 61 YO AA COMES TO ER WITH BURNING EPIGASTRIC PAIN. SHE HAS HX GERD/H HERNIA SHE WAS HERE ABOUT 3 WEEKS AGO FOR SAME SHE HAD AN EGD- HAS BRISCOE ESOPHAGUS AND "INFECTION" SHE IS ON PPI AND PEPCID SHE HAS SPECIALIST APPNT AT [place] 08/25 IN ADDITION TO TENDER EPIGASTRIC AREA SHE ENDORSES VOMITING LAST NIGHT WITH BLOOD STREEKS IN IT MD Complaint: abdominal pain -: Gradual, days(s) Location: epigastric Radiation: none Migration to: no migration Consistency: constant Associated Symptoms: nausea, vomiting, hematemesis. denies: diarrhea, fever, chills, constipation, dysuria, hematochezia, melena, hematuria, anorexia, syncope - Related Data Home Medications Medication Instructions Recorded Confirmed Last Taken Buspirone HCl [busPIRone] 15 mg PO TID 03/20/21 03/20/21 03/19/21 15 mg Lifitegrast [Xiidra] 1 drop INTRAOCULA BID 03/20/21 03/20/21 03/19/21 1 drop Quetiapine Fumarate [Quetiapine 400 mg PO HS 03/20/21 03/20/21 03/19/21 Fumarate ER] 400 mg Previous Rx's Medication Instructions Recorded Last Taken Type Ciprofloxacin HCl [Ciprofloxacin 250 mg PO BID #14 tablet 03/21/21 Unknown Rx TAB] HYDROcodone/APAP 5-325 [[place] 1 each PO Q6H #30 tablet 03/21/21 Unknown Rx 5/325] Ondansetron [Zofran Odt] 4 mg PO Q4HR PRN #30 tab.rapdis 03/21/21 Unknown Rx Pantoprazole [Protonix TAB] 40 mg PO BID #60 tablet 03/21/21 Unknown Rx LORazepam [Ativan] 0.5 mg PO BID PRN #10 tab 03/23/21 Unknown Rx Ondansetron HCl [Zofran] 4 mg PO Q6HR PRN #30 tablet 03/23/21 Unknown Rx Sucralfate [Carafate] 1 gm PO Q6HR 10 Days #1 bottle 05/07/21 Unknown Rx Allergies Allergy/AdvReac Type Severity Reaction Status Date / Time No Known Allergies Allergy Verified 12/24/19 11:20 ED Review of Systems ROS: Stated complaint: VOMITING BLOOD Other details as noted in HPI Comment: All other systems reviewed and negative ED Past Medical Hx - Past Medical History Previous Medical History?: Yes Hx Hypertension: No Hx Congestive Heart Failure: No Hx Diabetes: No Hx GERD: Yes Hx Renal Disease: Yes (left kidney CA) Hx Arthritis: Yes Hx Asthma: No Hx COPD: No Hx HIV: No Additional medical history: Briscoe's Disease - Surgical History Past Surgical History?: Yes Additional Surgical History: Kidney - Family History Family history: no significant - Social History Smoking Status: Never Smoker Substance Use Type: None - Medications Home Medications: Home Medications Medication Instructions Recorded Confirmed Last Taken Type Buspirone HCl [busPIRone] 15 mg PO TID 03/20/21 03/20/21 03/19/21 History 15 mg Lifitegrast [Xiidra] 1 drop INTRAOCULA BID 03/20/21 03/20/21 03/19/21 History 1 drop Quetiapine Fumarate [Quetiapine 400 mg PO HS 03/20/21 03/20/21 03/19/21 History Fumarate ER] 400 mg Ciprofloxacin HCl [Ciprofloxacin 250 mg PO BID #14 tablet 03/21/21 Unknown Rx TAB] HYDROcodone/APAP 5-325 [[place] 1 each PO Q6H #30 tablet 03/21/21 Unknown Rx 5/325] Ondansetron [Zofran Odt] 4 mg PO Q4HR PRN #30 tab.rapdis 03/21/21 Unknown Rx Pantoprazole [Protonix TAB] 40 mg PO BID #60 tablet 03/21/21 Unknown Rx LORazepam [Ativan] 0.5 mg PO BID PRN #10 tab 03/23/21 Unknown Rx Ondansetron HCl [Zofran] 4 mg PO Q6HR PRN #30 tablet 03/23/21 Unknown Rx Sucralfate [Carafate] 1 gm PO Q6HR 10 Days #1 bottle 05/07/21 Unknown Rx ED Physical Exam - General Limitations: No Limitations General appearance: alert, in no apparent distress - Head Head exam: Present: atraumatic, normocephalic - Eye Eye exam: Present: normal appearance - ENT ENT exam: Present: mucous membranes moist - Neck Neck exam: Present: normal inspection - Respiratory Respiratory exam: Present: normal lung sounds bilaterally. Absent: respiratory distress - Cardiovascular Cardiovascular Exam: Present: regular rate, normal rhythm. Absent: systolic murmur, diastolic murmur, rubs, gallop - GI/Abdominal GI/Abdominal exam: Present: soft, normal bowel sounds - Extremities Exam Extremities exam: Present: normal inspection - Back Exam Back exam: Present: normal inspection - Neurological Exam Neurological exam: Present: alert, oriented X3 - Psychiatric Psychiatric exam: Present: normal affect, normal mood - Skin Skin exam: Present: warm, dry, intact, normal color. Absent: rash ED Course Vital Signs 08/10/21 11:38 Temperature 98 F Pulse Rate 99 H Respiratory 16 Rate Blood Pressure 161/88 [Left] O2 Sat by Pulse 100 Oximetry - Reevaluation(s) Reevaluation #1: 08/10/21 13:00 left without treatment ED Medical Decision Making - Lab Data Result diagrams: 08/10/21 11:51 08/10/21 11:51 - Radiology Data Radiology results: report reviewed, image reviewed [facility] - Medical Decision Making Vital Signs (72 hours) 08/10/21 11:38 Temperature 98 F Pulse Rate 99 H Respiratory 16 Rate Blood Pressure 161/88 [Left] O2 Sat by Pulse 100 Oximetry Labs 08/10/21 11:51 WBC 16.6 H RBC 4.47 Hgb 12.0 Hct 36.4 MCV 81 MCH 27 L MCHC 33 RDW 16.7 H Plt Count 408 Lymph % (Auto) 10.1 L Bent % (Auto) 4.4 Eos % (Auto) 0.0 Baso % (Auto) 0.2 Lymph # (Auto) 1.7 Bent # (Auto) 0.7 Eos # (Auto) 0.0 Baso # (Auto) 0.0 Seg Neutrophils % 85.3 H Seg Neutrophils # 14.2 H xray noted GI COCKTAIL GIVEN PT LEFT PRIOR TO GETTING LABS BACK - Differential Diagnosis ro perf ulcer/gerd/choley/acholasia/PONCE W. TEAR Critical care attestation.: If time is entered above; I have spent that time in minutes in the direct care of this critically ill patient, excluding procedure time. ED Disposition Clinical Impression: Abdominal pain Disposition: 07 LEFT AWOL/ELOPED Is pt being admited?: No Does the pt Need Aspirin: No Condition: Stable Instructions: Abdominal Pain (ED) Referrals: ISSA LAIRD MD [Primary Care Provider] - 3-5 Days Time of Disposition: 13:00
--- NOTE | 2021-08-10 12:29 | XRay Report ---
ABDOMEN 3 VIEW(S) INDICATION / CLINICAL INFORMATION: abd pain. COMPARISON: 05/06/2021 FINDINGS: TUBES / LINES: None. BOWEL GAS PATTERN: No significant abnormality. FREE AIR / EXTRALUMINAL GAS: None seen. ADDITIONAL FINDINGS: No significant additional findings. CHEST: Visualized chest shows no significant abnormality. IMPRESSION: 1. No significant abnormality. Signer Name: Manohar Membreno MD Signed: 08/10/2021 12:25 PM Workstation Name: [id number]
[2021-08-10 12:43] LABS: Basophils % (Auto) 0.2 % (0.0-1.8); Hematocrit 36.4 % (30.3-42.9); Lymphocytes # (Auto) 1.7 K/mm3 (1.2-5.4); Lymphocytes % (Auto) 10.1 % (13.4-35.0); Mean Corpuscular HGB Conc 33 % (30-34); Mean Corpuscular Volume 81 fl (79-97); Monocytes # (Auto) 0.7 K/mm3 (0.0-0.8); Monocytes % (Auto) 4.4 % (0.0-7.3); Platelet Count 408 K/mm3 (140-440); Red Blood Count 4.47 M/mm3 (3.65-5.03); Red Cell Distribution Width 16.7 % (13.2-15.2)
[2021-08-10 13:20] LABS: Alanine Aminotransferase 17 units/L (7-56); Albumin 4.3 g/dL (3.9-5); BUN/Creatinine Ratio 13; Blood Urea Nitrogen 14 mg/dL (7-17); Hemolysis Index 6
[2021-08-10 13:24] LABS: Bilirubin,Direct < 0.2 mg/dL (0-0.2)
[2021-08-10 14:19] VITALS: BP 151/111
== END 2021-08-10 14:22 | disposition home or self-care (01) ==
LOC: ED 10:45
DX: R10.13 Epigastric pain (principal); K21.9 Gastro-esophageal reflux disease without esophagitis; N28.9 Disorder of kidney and ureter, unspecified; M19.90 Unspecified osteoarthritis, unspecified site; K22.70 Barrett's esophagus without dysplasia; Z98.890 Other specified postprocedural states
CPT/HCPCS: 36415; 74022; 80048; 80076; 83690; 85025; 99283

== ENCOUNTER 2021-10-10 13:21 | Outpatient (CLI) | payer MEDICARE ==
[2021-10-10 14:36] LABS: Blood Urea Nitrogen 16 mg/dL (7-17)
--- NOTE | 2021-10-10 15:47 | Magnetic Resonance Report ---
MRI abdomen. Without and with contrast HISTORY: Malignant neoplasm of the kidney.. TECHNIQUE: Multiplanar multisequence MR images of the abdomen were obtained before and after the intr avenous administration of 18 mL of Clariscan contrast agent. COMPARISON: 07/11/2021, 01/13/2021. FINDINGS: Compared to 07/11/2021 MRI, there has been interval decrease in size of a now 1.8 cm lesion within the lower pole of the left kidney. This remains hypointense compared to the adjacent renal parenchyma. Q uestionable peripheral enhancement is similar compared to most recent comparison which was done follo wing ablation procedure. No new renal lesion is identified. No hydronephrosis or findings to suggest obstructive uropathy. No pathologically enlarged lymph nodes. The liver, spleen, pancreas, adrenal glands, gallbladder, and kidneys are unremarkable. Partially visualized gastrointestinal tract shows no evidence of focal bow el wall thickening or pathologic distention. IMPRESSION: Slight decreased size of lesion within the lower pole of the left kidney. There remains persistent mi ld peripheral enhancement which may reflect posttreatment changes. No new suspicious findings or evid ence of metastatic disease. Signer Name: Quirino Harrison MD Signed: 10/10/2021 3:43 PM Workstation Name: [id number]
== END 2021-10-10 13:22 | disposition home or self-care (01) ==
LOC: MRI 13:21
PROVIDERS: ATTEND Radiology Diagnostic Radiology
DX: C64.9 Malignant neoplasm of unspecified kidney, except renal pelvis (principal); N28.9 Disorder of kidney and ureter, unspecified
CPT/HCPCS: 36415; 74183; 82565; 84520; A9575